=== PATIENT | female | born 1935 | race Caucasian/White ===

== ENCOUNTER 2016-11-18 12:03 | Inpatient (IN) ==
[2016-11-18] MEDS ORDERED: Aspirin 81 MG TAB.CHEW PO ONE (12:06)
--- NOTE | 2016-11-18 12:12 | Emergency Department Note ---
Disposition Clinical Impression: Chest pain Qualifiers: Chest pain type: unspecified Qualified Code(s): R07.9 - Chest pain, unspecified Disposition: Admitted As Inpatient Condition: Fair Referrals: Frederic Campa MD [Primary Care Provider] - Forms: ED Satisfaction Letter Time of Disposition: 14:00 Chest Pain HPI - General Chief Complaint: ED Chest Pain Stated Complaint: chest pain Time Seen by Provider: 11/18/16 12:06 Source: patient, EMS Mode of arrival: EMS Limitations: no limitations Vital Signs Reviewed: Yes Nursing Notes Reviewed: Yes - History of Present Illness HPI Narrative: 81-year-old female comes in complaining of chest pain that started just prior to arrival. She describes it as left-sided with some radiation into her left shoulder. She had some numbness and tingling in her left arm. She denies a history of previous [place] or stents. She states she does have some coronary artery disease. Review of recent records show no recent stress test or cardiac catheter. Pt complaint: chest pain Onset (ago): Just [employer] Duration: constant Onset: during rest Pain Location: substernal, left chest Severity: mild, moderate Quality: tightness, aching Pain Radiation: LUE Improves with: nothing Worsens with: nothing Associated symptoms: Denies: nausea, vomiting, diaphoresis Treatments prior to arrival chest pain: none - Related Data Home Medications Medication Instructions Recorded Confirmed CarBAMazepine [Carbamazepine ER] 200 mg PO BID 09/03/15 11/18/16 Cholecalciferol (Vitamin D3) 1,000 unit PO DAILY 09/03/15 11/18/16 [Vitamin D3] Ezetimibe [Zetia] 10 mg PO DAILY 09/03/15 11/18/16 Indapamide [Lozol] 2.5 mg PO DAILY 09/03/15 11/18/16 Losartan Potassium [Cozaar] 50 mg PO DAILY 09/03/15 11/18/16 Raloxifene [Evista] 60 mg PO DAILY 09/03/15 11/18/16 CarBAMazepine [Carbamazepine ER] 100 mg PO 1200 03/17/16 11/18/16 Pantoprazole Sodium [Protonix] 40 mg PO BID 03/17/16 11/18/16 Potassium Chloride 10 meq PO DAILY 03/17/16 11/18/16 Cyanocobalamin (B-12) [Vitamin B12] 1,000 mcg IJ QMONTH 06/24/16 11/18/16 Insulin Glargine,Hum.rec.anlog 10 unit SQ DAILY 06/24/16 11/18/16 [Wilfredo Galvanostar] Allergy Injection 1 each SQ QMONTH 11/18/16 Aspirin 81 mg PO DAILY 11/18/16 11/18/16 Allergies Allergy/AdvReac Type Severity Reaction Status Date / Time acetaminophen [From Vicodin] Allergy Rash Verified 11/18/16 14:14 cephalexin Allergy Rash Verified 11/18/16 14:14 codeine Allergy Rash Verified 11/18/16 14:14 hydrocodone [From Vicodin] Allergy Rash Verified 11/18/16 14:14 Penicillins [PCN] Allergy Rash Verified 11/18/16 14:14 Sulfa (Sulfonamide Allergy Rash Verified 11/18/16 14:14 Antibiotics) All systems ED: reviewed and negative except as stated. Constitutional: Denies: fever, chills, weakness, weight change Eyes: Denies: eye pain, eye discharge, vision change ENT ED: Denies: ear pain, throat pain, dental pain, hearing loss, epistaxis, congestion, dysphagia Cardiovascular: Reports: chest pain. Denies: palpitations, dyspnea on exertion , edema, syncope Respiratory: Denies: cough, dyspnea, wheezes, hemoptysis, stridor Gastrointestinal: Denies: abdominal pain, nausea, vomiting, diarrhea, constipation, hematemesis, melena, hematochezia Genitourinary: Denies: dysuria, frequency, hematuria, discharge Musculoskeletal: Denies: back pain, neck pain, arthralgia, myalgia Integumentary: Denies: rash, abrasion, lesions Neurological: Denies: headache, weakness, numbness, paresthesias, confusion, abnormal gait, vertigo Psychiatric: Denies: anxiety, depression, suicidal thoughts, homicidal thoughts , auditory hallucinations, visual hallucinations Endocrine: Denies: fatigue Hematological/Lymphatic: Denies: easy bleeding, easy bruising Allergic/Immunologic: Denies: facial swelling, urticaria Chest Pain PMH - Past Medical History Medical history: Reports: dementia, diabetes, hyperlipidemia, hypertension, seizures, syncope, TIA, other Surgical history: Reports: cholecystectomy, knee replacement, ELENI/BSO, other Psychiatric history: Reports: no psych history - Social History Smoking Status: Never smoker Alcohol use: Reports: none Drug use: Reports: none Physical Exam - General Limitations: no limitations General appearance: alert, in no apparent distress - Head Head exam: atraumatic, normocephalic, normal inspection - Eye Eye exam: Present: normal appearance, PERRL, EOMI - ENT ENT exam: normal exam, normal oropharynx, mucous membranes moist - Neck Neck exam: Present: normal inspection, full ROM, trachea midline - Chest Chest inspection: Present: normal inspection, symmetric chest wall rise - Respiratory Respiratory exam: Present: normal lung sounds bilaterally - Cardiovascular Cardiovascular exam: Present: regular rate, normal rhythm, normal heart sounds - Abdominal Exam Abdominal exam: Present: soft, Non-Tender. Absent: tenderness, distention, guarding, rebound, rigidity - Extremities Exam Extremities exam: Present: normal inspection, full ROM. Absent: tenderness, pedal edema - Expanded Lower Extremity Exam Neurovascular/Tendon exam: Absent: motor deficit, sensory deficit, tendon deficit Gait: not tested/not observed - Back Exam Back exam: Present: normal inspection, full ROM. Absent: tenderness - Neurological Exam Neurological exam: Present: alert, oriented X3 - Psychiatric Psychiatric exam: Present: normal affect, normal mood - Skin Skin exam: Present: warm, dry, intact, normal color Course - Reevaluation(s) Reevaluation #1: 81-year-old with chest pain describes as tightness heaviness in her chest. Patient's workup in the emergency department is negative she has had no recent cardiac workup. Time: 14:00 - Consultations Consultation #1: Discussed with , admit. Time: 14:22 Vital Signs Temperature 98.2 F 11/18/16 12:05 Pulse Rate 60 11/18/16 12:05 Respiratory Rate 18 11/18/16 12:05 Blood Pressure 210/93 11/18/16 12:05 O2 Sat by Pulse Oximetry 99 11/18/16 12:05 Temperature 98.2 F 11/18/16 12:05 Pulse Rate 61 11/18/16 13:48 Respiratory Rate 16 11/18/16 13:48 Blood Pressure 186/71 11/18/16 13:48 O2 Sat by Pulse Oximetry 99 11/18/16 13:48 Oxygen Delivery Oxygen Delivery Room Air Chest Pain - Lab Data Lab results reviewed: Yes I reviewed the patient's lab results. Result diagrams: 11/18/16 12:15 11/18/16 12:15 Lab Results 11/18/16 11/18/16 11/18/16 Range/Units 12:15 12:15 12:15 WBC 6.7 (4.3-11.1) K/mcL RBC 4.11 (3.82-4.97) M/mcL Hgb 12.9 (11.5-15.4) g/dL Hct 35.6 (35.3-44.9) % MCV 86.6 (83.0-100.0) fL MCH 31.4 (28.0-33.3) pg MCHC 36.2 H (31.6-35.5) g/dL RDW 11.9 (11.5-14.5) % Plt Count 188 (140-400) K/mcL MPV 8.5 L (9.4-12.4) fL Immature Gran % 0.9 (0-4) % Seg Neutrophils % 71.5 % Lymphocytes % 16.7 % Monocytes % 9.7 % Eosinophils % 0.6 % Basophils % 0.6 % Neutrophils # 4.8 (1.6-8.9) K/mcL Lymphocytes # 1.1 (0.6-4.6) K/mcL Monocytes # 0.7 (0.0-1.3) K/mcL Eosinophils # 0.0 (0.0-0.6) K/mcL Basophils # 0.0 (0.0-0.2) K/mcL PT 10.7 (9.4-12.1) Seconds INR 1.0 APTT 28.4 (26.0-36.0) Seconds Sodium 121 L (136-145) mEq/L Potassium 4.0 (3.5-4.5) mEq/L Chloride 81 L (98-109) mEq/L Carbon Dioxide 30 H (19-29) mEq/L BUN 17 (7-20) mg/dL Creatinine 1.01 (0.57-1.11) mg/dL Est GFR ( Amer) > 60 (> 60) Est GFR (Non-Af Amer) 53 L (> 60) BUN/Creatinine Ratio 17 (6-26) Glucose 184 H (70-99) mg/dL Calculated Osmolality 258 L (280-300) Calcium 9.1 (8.6-10.8) mg/dL Troponin I (0-0.03) ng/mL 11/18/16 Range/Units 12:15 WBC (4.3-11.1) K/mcL RBC (3.82-4.97) M/mcL Hgb (11.5-15.4) g/dL Hct (35.3-44.9) % MCV (83.0-100.0) fL MCH (28.0-33.3) pg MCHC (31.6-35.5) g/dL RDW (11.5-14.5) % Plt Count (140-400) K/mcL MPV (9.4-12.4) fL Immature Gran % (0-4) % Seg Neutrophils % % Lymphocytes % % Monocytes % % Eosinophils % % Basophils % % Neutrophils # (1.6-8.9) K/mcL Lymphocytes # (0.6-4.6) K/mcL Monocytes # (0.0-1.3) K/mcL Eosinophils # (0.0-0.6) K/mcL Basophils # (0.0-0.2) K/mcL PT (9.4-12.1) Seconds INR APTT (26.0-36.0) Seconds Sodium (136-145) mEq/L Potassium (3.5-4.5) mEq/L Chloride (98-109) mEq/L Carbon Dioxide (19-29) mEq/L BUN (7-20) mg/dL Creatinine (0.57-1.11) mg/dL Est GFR ( Amer) (> 60) Est GFR (Non-Af Amer) (> 60) BUN/Creatinine Ratio (6-26) Glucose (70-99) mg/dL Calculated Osmolality (280-300) Calcium (8.6-10.8) mg/dL Troponin I 0.00 (0-0.03) ng/mL - Radiology Data Radiology results reviewed: Yes I reviewed the patient's radiology results. Chest X-Ray 11/18/16 12:06 IMPRESSION: 1. Small left pleural effusion versus pleural thickening. Otherwise unremarkable chest radiograph. D/ / Miles Ying MD / Miles Ying MD Interpreting Provider: Miles Ying MD - EKG Data EKG attestation: Yes I reviewed and interpreted this EKG. EKG shows normal: sinus rhythm Rate: normal Rhythm: NSR Interpretation: no acute changes Heart Score - Score History: Moderately Suspicious EKG: Non Specific repolarisation Disturbance Age: Greater than 65 Risk Factors: Equal/Greater than 3 risk factor or history of atherosclerotic disease Troponin: Less than normal limit HEART Score Total: 6
[2016-11-18 12:30] LABS: Basophils % 0.6 %; Eosinophils % 0.6 %; Hematocrit 35.6 % (35.3-44.9); Hemoglobin 12.9 g/dL (11.5-15.4); Immature Granulocytes % 0.9 % (0-4); Lymphocytes # 1.1 K/mcL (0.6-4.6); Lymphocytes % 16.7 %; Mean Corpuscular HGB Conc 36.2 g/dL (31.6-35.5); Mean Corpuscular Hemoglobin 31.4 pg (28.0-33.3); Mean Corpuscular Volume 86.6 fL (83.0-100.0); Mean Platelet Volume 8.5 fL (9.4-12.4); Monocytes # 0.7 K/mcL (0.0-1.3); Monocytes % 9.7 %; Neutrophils # 4.8 K/mcL (1.6-8.9); Platelet Count 188 K/mcL (140-400); Red Blood Count 4.11 M/mcL (3.82-4.97); Red Cell Distribution Width 11.9 % (11.5-14.5); Segmented Neutrophils % 71.5 %
[2016-11-18 12:38] LABS: Prothrombin Time 10.7 Seconds (9.4-12.1)
[2016-11-18 12:40] LABS: Activated Partial Thrombo Time 28.4 Seconds (26.0-36.0)
[2016-11-18 12:50] LABS: BUN/Creatinine Ratio 17 (6-26); Blood Urea Nitrogen 17 mg/dL (7-20); Calcium 9.1 mg/dL (8.6-10.8); Carbon Dioxide 30 mEq/L (19-29); Chloride 81 mEq/L (98-109); Glucose 184 mg/dL (70-99); Osmolality,Calculated 258 (280-300); Sodium 121 mEq/L (136-145); eGFR For African Americans > 60 (> 60); eGFR For Non-African Americans 53 (> 60)
--- NOTE | 2016-11-18 16:48 | Internal Med History&Physical ---
Date of Encounter: 11/18/16 Time of Encounter: 16:45 Assessment and Plan (1) Chest pain Current visit: Yes Status: Acute currently chest pain free, s/p one dose of aspirin. h/o stent placed, plavix was held as she was bruising too much. she is only taking baby aspirin first trop is negative, no EKG changes will trend trop, monitor for chest pain, continuous tele monitoring. may be 2/2 HTN urgency, will not order stress testing at this time. Qualifiers: Chest pain type: unspecified Qualified Code(s): R07.9 - Chest pain, unspecified (2) Diabetes Current visit: No Status: Chronic Qualifiers: Diabetes mellitus type: type 2 Diabetes mellitus complication status: without complication Qualified Code(s): E11.9 - Type 2 diabetes mellitus without complications (3) HTN (hypertension) Current visit: No Status: Chronic BP was elevated when she came SBP>210. currently at 140/80s. will continue home meds, watch overnight Qualifiers: Hypertension type: essential hypertension Qualified Code(s): I10 - Essential (primary) hypertension (4) Dementia Current visit: No Status: Acute was able to answer all the questions appropriately. alert and awake. Qualifiers: Dementia type: unspecified type Dementia behavioral disturbance: without behavioral disturbance Qualified Code(s): F03.90 - Unspecified dementia without behavioral disturbance (5) CAD (coronary artery disease) Current visit: No Status: Chronic has had stents in the past, as per the daughter she had no CA but had stents placed at [facility]. she has no h/o LHC done. on asa and statin, will continue Qualifiers: Coronary Disease-Associated Artery/Lesion type: [place] artery [place] vs. transplanted heart: [place] heart Associated angina: without angina Qualified Code(s): I25.10 - Atherosclerotic heart disease of [place] coronary artery without angina pectoris (6) Carotid stenosis, left Current visit: No Status: Chronic she was told that the stenosis is not severe for the surgical procedure. Internal Medicine - H&P: HPI Chief complaint: chest pain Admitted From: Home Plans for Post Hospital Care: Home History of present illness: Ms. Galaviz is a 81 year old female with history of HTN, TIA x 2, Carotid artery stenosis, type 2 diabetes and dementia, who presented with a complaint of left- sided chest pain that started this morning. Patient has history of cardiac stent placed many years ago at [place], currently only on baby aspirin. She reports that this is the first time she has this kind of chest pain that made her come to the hospital. As per the daughter, she had a dream this weekend and she saw that she , since then she has been very stressful and has not slept well. At the time of presentation, her blood pressure was elevated at systolic more than 200, she was given aspirin at ED. She reports she was mildly short of breath, however denies any nausea, vomiting , fever, cough, palpitation or diaphoresis. She reports that she takes her medications regularly and has not missed any doses. She denies exertional dyspnea or exertional chest pain before this episode. At the time of my assessment, she reports that the chest pain has almost resolved. Past Med Surg Social Fam HX - Past Medical History Medical history: dementia, diabetes, hyperlipidemia, hypertension, seizures, syncope, TIA, other Psychiatric history: no psych history - Past Surgical History Surgical History: cholecystectomy, knee replacement, ELENI/BSO, other - Social History Smoking Status: Never smoker Smokeless Tobacco Status: No Alcohol use: none Drug use: none - Family History Mother Living Status: Father Living Status: Hx Family Endocrine Disorder: Yes (diabetes) Sister Hx Family Cancer: Yes (breast cancer) Internal Medicine - H&P: Meds CarBAMazepine [Carbamazepine ER] 200 mg PO BID 09/03/15 [History] Cholecalciferol (Vitamin D3) [Vitamin D3] 1,000 unit PO DAILY 09/03/15 [History] Ezetimibe [Zetia] 10 mg PO DAILY 09/03/15 [History] Indapamide [Lozol] 2.5 mg PO DAILY 09/03/15 [History] Losartan Potassium [Cozaar] 50 mg PO DAILY 09/03/15 [History] Raloxifene [Evista] 60 mg PO DAILY 09/03/15 [History] CarBAMazepine [Carbamazepine ER] 100 mg PO 1200 03/17/16 [History] Pantoprazole Sodium [Protonix] 40 mg PO BID 03/17/16 [History] Potassium Chloride 10 meq PO DAILY 03/17/16 [History] Cyanocobalamin (B-12) [Vitamin B12] 1,000 mcg IJ QMONTH 06/24/16 [History] Insulin Glargine,Hum.rec.anlog [Wilfredo Feliz] 10 unit SQ DAILY 06/24/16 [ History] Allergy Injection 1 each SQ QMONTH 11/18/16 [History] Aspirin 81 mg PO DAILY 11/18/16 [History] Allergies acetaminophen [From Vicodin] Allergy (Verified 11/18/16 14:14) Rash cephalexin Allergy (Verified 11/18/16 14:14) Rash codeine Allergy (Verified 11/18/16 14:14) Rash hydrocodone [From Vicodin] Allergy (Verified 11/18/16 14:14) Rash Penicillins [PCN] Allergy (Verified 11/18/16 14:14) Rash Sulfa (Sulfonamide Antibiotics) Allergy (Verified 11/18/16 14:14) Rash All Systems PM: A 10-system review of systems was performed and is negative for pertinent findings except as documented above in the HPI. - Constitutional Constitutional: as per HPI - EENT Eyes: as per HPI Nose, mouth and throat: no dysphagia, no nasal discharge, no neck pain, no sore throat - Cardiovascular Cardiovascular ROS IM: chest pain, dyspnea - Respiratory Respiratory: no cough, no dyspnea, no wheezing, no excessive phlegm production - Gastrointestinal Gastrointestinal: no abdominal pain, no diarrhea, no hematemesis, no hematochezia, no melena, no nausea, no vomiting - Genitourinary Genitourinary: no change in urinary stream, no dysuria, no flank pain, no hematuria - Musculoskeletal Musculoskeletal ROS IM: no numbness, no tingling - Constitutional Vitals: Temp Pulse Resp BP Pulse Ox 98.0 F 61 17 141/67 100 11/18/16 15:28 11/18/16 15:28 11/18/16 15:28 11/18/16 15:28 11/18/16 15:28 General appearance: Present: A&O X 3, no acute distress Exam: neck- supple chest- b/l clear, no added sounds CVS- s1 and s2, no m/r/g abd-soft, non tender, bs are present ext - no edema neuro- no focal deficits. Internal Med - H&P Results - Labs CBC & Chem 7: 11/18/16 12:15 11/18/16 12:15
[2016-11-18] MEDS ORDERED: Naloxone 0.4 MG/ML INJ IVP PRN (17:09)
[2016-11-18] MEDS ORDERED: *HR* Dextrose 50 % in Water (Syg) 50 ML SYRINGE IVP PRN (17:13)
[2016-11-18] MEDS ORDERED: Dextrose Gel 15 GM PO PRN ×2 (17:13)
[2016-11-18] MEDS ORDERED: D5% in Water 1,000 ML IVC PRN (17:13)
--- NOTE | 2016-11-18 19:24 | Event Note ---
Date of Encounter: 11/18/16 Time of Encounter: 19:23 Called by RN for sodium level of 121. I stopped her Indapamide, ordered frequent Chem-7 to monitor electrolytes, and placed her in seizure precautions. Suspect low sodium due to thiazide diuretic.
[2016-11-18 20:23] LABS: BUN/Creatinine Ratio 19 (6-26); Blood Urea Nitrogen 16 mg/dL (7-20); Calcium 8.3 mg/dL (8.6-10.8); Carbon Dioxide 29 mEq/L (19-29); Chloride 82 mEq/L (98-109); Glucose 170 mg/dL (70-99); Osmolality,Calculated 255 (280-300); Potassium 3.6 mEq/L (3.5-4.5); eGFR For African Americans > 60 (> 60); eGFR For Non-African Americans > 60 (> 60)
[2016-11-18 20:34] LABS: Sodium 120 mEq/L (136-145)
[2016-11-18] MEDS: Insulin LISPRO 300 UNITS/3 ML VIAL SQ SCH (21:47)
--- NOTE | 2016-11-19 00:19 | Event Note ---
Date of Encounter: 11/19/16 Time of Encounter: 00:15 Called by RN with repeat sodium level 118. I saw and examined patient. She is alert and oriented, but she has dementia and has poor recollection of her recent medical history. She admits to history of seizures and prior brain surgery many years ago. She confirms she is on Indapamide for BP control, but she does not know how long she's been on it. She denies any excessive polydipsia. She denies prior history of hyponatremia; however her memory recall is suboptimal. On exam, she has no focal deficits. She appears euvolemic. I will order a head CT, transfer her to , monitor chem-7 closely, and consult nephrology for guidance.
[2016-11-19 03:20] LABS: BUN/Creatinine Ratio 20 (6-26); Blood Urea Nitrogen 16 mg/dL (7-20); Calcium 7.9 mg/dL (8.6-10.8); Carbon Dioxide 24 mEq/L (19-29); Chloride 85 mEq/L (98-109); Glucose 149 mg/dL (70-99); Osmolality,Calculated 248 (280-300); Potassium 4.1 mEq/L (3.5-4.5); eGFR For African Americans > 60 (> 60); eGFR For Non-African Americans > 60 (> 60)
[2016-11-19 03:23] LABS: Sodium 117 mEq/L (136-145)
[2016-11-19] MEDS: *HR* Enoxaparin 30 MG/0.3 ML SYRINGE SQ SCH (06:21)
[2016-11-19 06:38] LABS: Basophils % 0.4 %; Eosinophils % 0.5 %; Hematocrit 34.5 % (35.3-44.9); Hemoglobin 12.4 g/dL (11.5-15.4); Immature Granulocytes % 0.5 % (0-4); Lymphocytes # 1.2 K/mcL (0.6-4.6); Lymphocytes % 14.5 %; Mean Corpuscular HGB Conc 35.9 g/dL (31.6-35.5); Mean Corpuscular Hemoglobin 31.5 pg (28.0-33.3); Mean Corpuscular Volume 87.6 fL (83.0-100.0); Mean Platelet Volume 8.6 fL (9.4-12.4); Monocytes # 0.8 K/mcL (0.0-1.3); Monocytes % 10.2 %; Neutrophils # 6.1 K/mcL (1.6-8.9); Platelet Count 183 K/mcL (140-400); Red Blood Count 3.94 M/mcL (3.82-4.97); Red Cell Distribution Width 11.7 % (11.5-14.5); Segmented Neutrophils % 73.9 %
[2016-11-19 06:50] LABS: BUN/Creatinine Ratio 20 (6-26); Blood Urea Nitrogen 16 mg/dL (7-20); Calcium 8.4 mg/dL (8.6-10.8); Carbon Dioxide 21 mEq/L (19-29); Chloride 85 mEq/L (98-109); Glucose 146 mg/dL (70-99); Osmolality,Calculated 254 (280-300); Potassium 3.6 mEq/L (3.5-4.5); eGFR For African Americans > 60 (> 60); eGFR For Non-African Americans > 60 (> 60)
[2016-11-19 06:55] LABS: Sodium 120 mEq/L (136-145)
[2016-11-19] MEDS: (Ezetimibe [Zetia] 10 MG) PO SCH (08:29)
[2016-11-19] MEDS: Aspirin 81 MG TAB.CHEW PO SCH (08:29)
[2016-11-19 08:30] LABS: BUN/Creatinine Ratio 19 (6-26); Blood Urea Nitrogen 15 mg/dL (7-20); Calcium 8.4 mg/dL (8.6-10.8); Carbon Dioxide 24 mEq/L (19-29); Chloride 83 mEq/L (98-109); Glucose 172 mg/dL (70-99); Osmolality,Calculated 255 (280-300); Potassium 3.5 mEq/L (3.5-4.5); eGFR For African Americans > 60 (> 60); eGFR For Non-African Americans > 60 (> 60)
--- NOTE | 2016-11-19 08:32 | Nephrology Consult Note ---
<Scott Cameron - Last Filed: 11/19/16 12:06> Date of Encounter: 11/19/16 Time of Encounter: 08:28 Assessment and Plan (1) Hyponatremia Current Visit: Yes Status: Acute Acute hyponatremia, euvolemic. Patient was admitted for Chest pain and subsequently determined to have Sodium on admission of 121. Sodium on repeat labs down to 117. Indapamide held by overnight Hospitalist. Prior history of borderline/low normal sodium. CXR revealed a small left pleural effusion vs pleural thickening. CT Head revealed no acute process, stable bifrontal enecphalomalacia with craniotomy. Patient reports some lightheadedness this morning. Exam reveals a pleasant 81 year old female, alert and oriented to person place and time, not situation with no additional exam findings. Patient appears euvolemic. Sodium 120, calculated osm 254. TSH returned normal. Urine sodium, Urine osm, Serum osm, random cortisol, and serum uric acid ordered. Monitor I&O. Salt tablets 1gm bid. Continue monitoring labs. (2) HTN (hypertension) Current Visit: Yes Status: Chronic Patient with a known history of hypertension on home indapamide and losartan was determined to have elevated bp of 210/93 on arrival to ED. Bp returned to 141/67 upon admission without medications/intervention. Overnight patient's bp elevated to 154-168/49-71 with pulse of 63-65 bpm. Patient was given 10mg hydralazine. Indapamide held due to possible contributing factor of hyponatremia. Bp this morning at 117/47, rate 85 bpm. Patient reports mild lightheadedness this morning. Continue with Losartan and Hydralazine prn. Continue monitoring bp. Goal bp < 150/90. Caution advised to avoid hypotension. Contineu per plan of hospitalist. Qualifiers: Hypertension type: essential hypertension Qualified Code(s): I10 - Essential (primary) hypertension (3) Chest pain Current Visit: Yes Status: Acute Patient was admitted yesterday from the ED with complaint of Chest pain. Patient denies chest pain this morning or overnight. Continue per plan of hospitalist. Qualifiers: Chest pain type: unspecified Qualified Code(s): R07.9 - Chest pain, unspecified (4) Dementia Current Visit: Yes Status: Chronic Patient has a known history of dementia. A&O x3 person, place, and time this morning. Unaware what brought her to the Hospital No lethargy/somnolence noted. No family members at bedside to determine if at baseline, but appears no acute process. CT Head revealed no acute process, stable bifrontal encephalomalacia with craniotomy. Qualifiers: Dementia type: unspecified type Dementia behavioral disturbance: without behavioral disturbance Qualified Code(s): F03.90 - Unspecified dementia without behavioral disturbance (5) Type 2 diabetes mellitus Current Visit: Yes Status: Chronic Patient with known history of type II diabetes on insulin. Glucose 146. Continue monitoring labs Continue per plan of hospitalist. Qualifiers: Diabetes mellitus complication status: without complication Diabetes mellitus fdc insulin use: with fdc use Qualified Code(s): E11.9 - Type 2 diabetes mellitus without complications; Z79.4 - intermediate (current) use of insulin (6) Seizure disorder Current Visit: Yes Status: Chronic Known history of seizure disorder unspecified. No reported history of seizure activity prompting this visit or overnight seizure-like activity. Continue home meds for chronic disease management. Continue per plan of Hospitalist. History of Present Illness - Reason for Consult Consult date: 11/19/16 hyponatremia Requesting physician: Edis Hunter - Chief Complaint Chest pain. Hypertension, hyponatremia - History of Present Illness Ms. Galaviz is an 81 year old female with history of hypertension (on indapamide and losartan), type II diabetes on insulin, CAD s/p stent on aspirin, carotid stenosis, hyperlipidemia, unspecified seizure disorder, and dementia who presented to the ED yesterday afternoon with complaint of left sided chest pain since early that morning. Review of notes indicates patient's daughter had mentioned the patient had a dream of over the weekend and has since been stressed and not sleeping well. Upon arrival EKG revealed normal sinus rhythm without acute changes, CXR revealed a small left pleural effusion vs pleural thickening, troponins have been negative x 3. Review of notes indicates patient has been A&O x3. Bp on arrival was 210/93 with rate of 60. Labs revealed sodium of 121, potassium of 4.0, chloride 81, bicarb 30, BUN 17, Cr 1.01, and glucose 184. Hb 12.9, Hct 25.6, platelets 188. Patient was admitted for chest pain rule out. Another set of labs indicated sodium down to 117. Review of event note from overnight Hospitalist indicates patient was alert and oriented with baseline dementia and difficulty remembering things and indapamide was discontinued. Bp upon admission was controlled at 140/80s without medications. Overnight bp was between 154-168/49-71 with rate between 63-65 bpm. Patient was administered hydralazine with bp returning to 117/47 with rate 85 this morning. Labs this morning reveal sodium 120, potassium 2.6, chlordie 85, bicarb 21, BUN 16, Cr 0.80, and glucose 146. Nephrology was consulted for evaluation and management of Hyponatremia and uncontrolled hypertension. This morning the patient is A&O x3, but unaware of what brought her to the hospital. Patient reports some shortness of breath and some lightheadedness. Patient denies fevers, chills, sweats, headaches, changes in vision or hearing, increased confusion, increased problems with memory, nausea, vomiting, increased /decreased appetite, dysphagia, increased fluid intake, chest pain or pressure, palpitations, abdominal pain, changes in bowels or bladder, dysuria, weakness, or loss of sensation. Upon further questioning, patient is fully aware that she had a bad dream over the weekend and reports that since she has not been sleeping throughout the night. Past Med Surg Social Fam HX - Past Medical History Medical history: coronary artery disease, dementia, diabetes, hyperlipidemia, hypertension, seizures, syncope, TIA, other Psychiatric history: no psych history - Past Surgical History Surgical History: cholecystectomy, knee replacement, ELENI/BSO, other - Social History Smoking Status: Never smoker Smokeless Tobacco Status: No Alcohol use: none Drug use: none Occupational status: retired Activity Level: Independent ambulation, Other (with assistance) Recent Out of Country Travel Within the Last 8 Weeks: No Exposure or Possible Exposure to Illness During Travel: No - Family History Mother Living Status: Father Living Status: Hx Family Endocrine Disorder: Yes (diabetes) Sister Hx Family Cancer: Yes (breast cancer) Medications and Allergies CarBAMazepine [Carbamazepine ER] 200 mg PO BID 09/03/15 [History] Cholecalciferol (Vitamin D3) [Vitamin D3] 1,000 unit PO DAILY 09/03/15 [History] Ezetimibe [Zetia] 10 mg PO DAILY 09/03/15 [History] Indapamide [Lozol] 2.5 mg PO DAILY 09/03/15 [History] Losartan Potassium [Cozaar] 50 mg PO DAILY 09/03/15 [History] Raloxifene [Evista] 60 mg PO DAILY 09/03/15 [History] CarBAMazepine [Carbamazepine ER] 100 mg PO 1200 03/17/16 [History] Pantoprazole Sodium [Protonix] 40 mg PO BID 03/17/16 [History] Potassium Chloride 10 meq PO DAILY 03/17/16 [History] Cyanocobalamin (B-12) [Vitamin B12] 1,000 mcg IJ QMONTH 06/24/16 [History] Insulin Glargine,Hum.rec.anlog [Toujeo Solostar] 10 unit SQ DAILY 06/24/16 [ History] Allergy Injection 1 each SQ QMONTH 11/18/16 [History] Aspirin 81 mg PO DAILY 11/18/16 [History] Allergies acetaminophen [From Vicodin] Allergy (Verified 11/18/16 14:14) Rash cephalexin Allergy (Verified 11/18/16 14:14) Rash codeine Allergy (Verified 11/18/16 14:14) Rash hydrocodone [From Vicodin] Allergy (Verified 11/18/16 14:14) Rash Penicillins [PCN] Allergy (Verified 11/18/16 14:14) Rash Sulfa (Sulfonamide Antibiotics) Allergy (Verified 11/18/16 14:14) Rash Review of Systems Constitutional: no chills, no fatigue, no fever(s), no headache(s), no increased appetite, no malaise, no night sweats, no weakness, no weight gain, no weight loss Nose, mouth and throat: as per HPI, no dry mouth, no dysphagia, no sore throat Cardiovascular: as per HPI, dyspnea, lightheadedness, no chest pain, no diaphoresis, no edema, no irregular heart rhythm, no leg edema, no palpitations , no pedal edema, no rapid heart rate, no syncope Respiratory: as per HPI, dyspnea, no cough, no wheezing, no pain on inspiration , no chest congestion, no excessive phlegm production Gastrointestinal: as per HPI, no abdominal pain, no change in bowel habits, no change in stool character, no constipation, no diarrhea, no heartburn, no nausea , no odynophagia, no vomiting Genitourinary Female: as per HPI, no dysuria, no flank pain, no hematuria Musculoskeletal: as per HPI, limited range of motion (appropriate for age), no abnormal gait, no muscle weakness, no numbness, no stiffness, no tingling Integumentary: as per HPI, no erythema, no pruritus, no rash, no skin pain, no swelling, no unusual bruising Neurological: as per HPI, memory loss, no abnormal gait, no abnormal movements, no behavioral changes, no confusion, no frequent falls, no headache(s), no loss of vision, no numbness, no syncope, no tingling, no weakness Psychiatric: as per HPI, no depression Exam - Vital Signs Vital signs: Initial Vital Signs Temp Pulse Resp BP Pulse Ox 98.2 F 60 18 210/93 99 11/18/16 12:05 11/18/16 12:05 11/18/16 12:05 11/18/16 12:05 11/18/16 12:05 Vital Signs - Last 8 Hours Temp Pulse Resp BP Pulse Ox 11/19/16 07:34 98.1 F 85 14 117/47 97 11/19/16 03:13 97.7 F 63 18 168/71 97 11/19/16 01:59 97.4 F L 65 16 154/49 98 Intake and Output 11/18/16 11/19/16 11/19/16 23:59 07:59 15:59 Output Total 250 / 250 Balance -250 / -250 Output: Urine 250 / 250 Other: Weight 60.1 kg Blood Glucose* 215 187 Patient Weight 11/19/16 23:59 Weight 60.1 kg - General Appearance General appearance: well-developed, appears started age, cachectic Exam: no acute distress EENT: PERRL, mucous membranes moist, hearing intact, vision intact Neck: no JVD, no thyromegaly, no carotid bruit, supple Respiratory: no scoliosis, clear Cardiology: no murmurs, no edema, regular rate, regular rhythm, normal S1, normal S2 Gastrointestinal: normoactive bowel sounds, no tenderness, no guarding, no organomegaly, no masses Integumentary: no rash, warm and dry, ecchymotic (lesions on upper extremity s/ p lab draws) Neurologic: no focal deficit, alert and oriented x3, reflexes 2+ and symmetric, strength 5/5 (for age) Musculoskeletal: no deformities, no erythema, no cyanosis, no clubbing Additional Comments: no edema Psychiatric: mood/affect appropriate, cooperative Additional Comments: Pleasent, no acute distress, Alert and Oriented to person, place, and time. not to situation. Results - Lab Results 11/19/16 05:48 11/19/16 10:29 Most recent lab results Calcium 8.4 mg/dL (8.6-10.8) L 11/19/16 05:48 Consult Discharge Plan - Plan Referrals: Frederic Campa MD [Primary Care Provider] - Louise Escalante CNP [Advanced Practice Nurse] - 11/28/16 10:00 am <Breanna Lora - Last Filed: 11/19/16 17:08> Date of Encounter: 11/19/16 Exam - Vital Signs Vital signs: Initial Vital Signs Temp Pulse Resp BP Pulse Ox 98.2 F 60 18 210/93 99 11/18/16 12:05 11/18/16 12:05 11/18/16 12:05 11/18/16 12:05 11/18/16 12:05 Vital Signs - Last 8 Hours Temp Pulse Resp BP Pulse Ox 11/19/16 17:02 68 11/19/16 15:03 97.5 F L 80 16 120/59 100 11/19/16 12:35 70 11/19/16 11:05 97.7 F 91 16 123/64 Intake and Output 11/19/16 11/19/16 11/19/16 07:59 15:59 23:59 Intake Total 300 / 300 Output Total 250 / 250 450 / 450 Balance -250 / -250 -150 / -150 Intake: Oral 300 / 300 Output: Urine 250 / 250 450 / 450 Other: Meal Lunch Percent of Meal Consumed 30% Weight 60.1 kg Blood Glucose* 187 241 136 Patient Weight 11/19/16 23:59 Weight 60.1 kg Results - Lab Results 11/19/16 05:48 11/19/16 10:29 Most recent lab results Calcium 8.3 mg/dL (8.6-10.8) L 11/19/16 10:29 Urine Creatinine 49 mg/dL 11/19/16 08:20 Urine Sodium 78.0 mEq/L 11/19/16 08:20 - Attending Attestation I examined this patient and my medical decision-making was reviewed with the MEASUREMENT DEPARTMENT CHIEF CLERK/PA/Advanced Practice Nurse/Resident Physician. I agree with the documented findings, disposition and treatment plan as described except to the extent set forth below. Pt seen and examined with no complaints at baseline according to nurse who spoke with daughter given history of dementia and seizure d/o. BP normalized but with hyponatremia in the setting of diuretics and tegretol in a euvolemic patient also rule SIADH Will check urine and serum osmolality, urine sodium, cortisol level and uric acid level. start sodium tabs in the meantime at 1g bid. Also fluid restrict for now and continue serial sodium checks q4 till above 120 and q6 afterwards. Agree with stopping indapamide for now and also consider chnaging tegretol which is known for hyponatremia.
[2016-11-19 08:36] LABS: Sodium 120 mEq/L (136-145)
[2016-11-19] MEDS: Insulin LISPRO 300 UNITS/3 ML VIAL SQ SCH ×4 (08:42→21:15)
[2016-11-19 09:55] LABS: Thyroid Stimulating Hormone 1.005 mcIU/mL (0.350-4.840)
[2016-11-19 11:31] LABS: BUN/Creatinine Ratio 17 (6-26); Blood Urea Nitrogen 16 mg/dL (7-20); Calcium 8.3 mg/dL (8.6-10.8); Carbon Dioxide 25 mEq/L (19-29); Chloride 82 mEq/L (98-109); Glucose 266 mg/dL (70-99); Osmolality,Calculated 256 (280-300); Potassium 3.4 mEq/L (3.5-4.5); eGFR For African Americans > 60 (> 60); eGFR For Non-African Americans 58 (> 60)
[2016-11-19 11:36] LABS: Sodium 118 mEq/L (136-145)
[2016-11-19] MEDS ORDERED: CarBAMazepine XR (12 hr) 100 MG TAB PO SCH (12:00)
--- NOTE | 2016-11-19 16:36 | Internal Med Progress Note ---
Date of Encounter: 11/19/16 Time of Encounter: 16:34 - Assessment and plan (1) Hyponatremia Current Visit: Yes Status: Acute Assessment and plan: na noted to be 118. workup revealed normal TSH. normal cortisol patinet appears to have euvolemic hyponatremia, low serum osmolarity, urine osmolaity high---393, high urine NA ---78. may be 2/2 hyper ADH possible SIADH vs salt wasting( unclear etiology). CT head does not show any acute pathology. await renal recommendation. will do fluid restriction for now and monitor urine output. currently added on salt tabs, will repeat chem q6, monitor for seizures. (2) Chest pain Current Visit: Yes Status: Acute Assessment and plan: no chest pain now. h/o stent placed, plavix was held as she was bruising too much. she is only taking baby aspirin tropx3 is negative, no EKG changes may be 2/2 HTN urgency, BP much controlled this time. Qualifiers: Chest pain type: unspecified Qualified Code(s): R07.9 - Chest pain, unspecified (3) Diabetes Current Visit: No Status: Chronic Assessment and plan: will continue lispro sliding scale for now. Qualifiers: Diabetes mellitus type: type 2 Diabetes mellitus complication status: without complication Qualified Code(s): E11.9 - Type 2 diabetes mellitus without complications (4) HTN (hypertension) Current Visit: Yes Status: Chronic Assessment and plan: will continue current BP meds, Hydralazine prn. Qualifiers: Hypertension type: essential hypertension Qualified Code(s): I10 - Essential (primary) hypertension (5) Dementia Current Visit: Yes Status: Chronic Assessment and plan: alert and awake but appears somewhat confusedtoday as compared to yesterday. this may be 2/2 worsening hyponatremia too Qualifiers: Dementia type: unspecified type Dementia behavioral disturbance: without behavioral disturbance Qualified Code(s): F03.90 - Unspecified dementia without behavioral disturbance (6) CAD (coronary artery disease) Current Visit: No Status: Chronic Qualifiers: Coronary Disease-Associated Artery/Lesion type: [place] artery [place] vs. transplanted heart: [place] heart Associated angina: without angina Qualified Code(s): I25.10 - Atherosclerotic heart disease of [place] coronary artery without angina pectoris (7) Carotid stenosis, left Current Visit: No Status: Chronic - Time Spent With Patient 25 - 35 minutes - Subjective Interval history: carol preseneted with chest pain and HTN urgency, seen at the bedside augusto overton was told by the daughter that she has been more confused repeat Na is 118, renal has been consulted, BP much better controlled, - Constitutional Vitals: Temp Pulse Resp BP Pulse Ox 97.5 F L 80 16 120/59 100 11/19/16 15:03 11/19/16 15:03 11/19/16 15:03 11/19/16 15:03 11/19/16 15:03 General appearance: Present: A&O X 3, no acute distress Exam: neck- supple chest- b/l clear, no added sounds CVS-s1 and s2, no m/r/g abd-soft, non tender, bs are present ext0 no edema neuro- alert adn awake, no focal neuro defecits Internal Medicine: Result - Labs CBC & Chem 7: 11/19/16 05:48 11/19/16 10:29 Labs: Short CBC 11/19/16 Range/Units 05:48 WBC 8.3 (4.3-11.1) K/mcL Hgb 12.4 (11.5-15.4) g/dL Hct 34.5 L (35.3-44.9) % Plt Count 183 (140-400) K/mcL Neutrophils # 6.1 (1.6-8.9) K/mcL BMP 11/18/16 11/18/16 11/19/16 19:45 22:47 03:01 Sodium 120 L* 118 L* 117 L* Potassium 3.6 4.1 Chloride 82 L 85 L Carbon Dioxide 29 24 BUN 16 16 Creatinine 0.86 0.82 Glucose 170 H 149 H Calcium 8.3 L 7.9 L 11/19/16 11/19/16 11/19/16 05:48 08:08 10:29 Sodium 120 L* 120 L* 118 L* Potassium 3.6 3.5 3.4 L Chloride 85 L 83 L 82 L Carbon Dioxide 21 24 25 BUN 16 15 16 Creatinine 0.80 0.79 0.93 Glucose 146 H 172 H 266 H Calcium 8.4 L 8.4 L 8.3 L Cardiac Enzymes 11/18/16 11/19/16 Range/Units 18:01 00:23 Troponin I 0.01 0.01 (0-0.03) ng/mL - ABG Interpretation ABG results: PT/INR, D-dimer PT 10.7 Seconds (9.4-12.1) 11/18/16 12:15 - Impressions Impressions Head CT 11/19/16 00:13 IMPRESSION: No acute intracranial abnormality. Stable bifrontal encephalomalacia with craniotomy. D/ / Rashid Avery MD / Rashid Avery MD Interpreting Provider: Rashid Avery MD Consult Discharge Plan - Plan Referrals: Frederic Campa MD [Primary Care Provider] - Louise Escalante CNP [Advanced Practice Nurse] - 11/28/16 10:00 am
[2016-11-19 18:28] LABS: BUN/Creatinine Ratio 24 (6-26); Blood Urea Nitrogen 21 mg/dL (7-20); Carbon Dioxide 22 mEq/L (19-29); Chloride 86 mEq/L (98-109); Glucose 163 mg/dL (70-99); Osmolality,Calculated 257 (280-300); Potassium 4.3 mEq/L (3.5-4.5); eGFR For African Americans > 60 (> 60); eGFR For Non-African Americans > 60 (> 60)
[2016-11-19 18:33] LABS: Sodium 120 mEq/L (136-145)
[2016-11-19 19:14] LABS: Bilirubin,Urine Negative (Negative); Blood,Urine Negative (Negative); Clarity,Urine Clear (Clear); Color,Urine Yellow (Yellow); Glucose,Urine (UA) Normal (Normal); Ketones,Urine Negative (Negative); Leukocyte Esterase,Urine Negative (Negative); Nitrite,Urine Negative (Negative); PH,Urine 6.5 pH Units (5.0-8.0); Protein,Urine Trace mg/dL (Neg-Trace); Specific Gravity,Urine 1.016 (1.010-1.025); Urobilinogen,Urine Normal (Normal)
[2016-11-19 19:19] LABS: Bacteria,Urine None Seen per hpf (None-Few); Hyaline Casts,Urine None Seen per lpf (None-Few); RBC,Urine 0-3 per hpf (0-3); Squamous Epithelial Cell,Urine Moderate per lpf (None-Few); WBC,Urine 0-3 per hpf (0-3)
[2016-11-19 22:32] LABS: BUN/Creatinine Ratio 22 (6-26); Blood Urea Nitrogen 21 mg/dL (7-20); Carbon Dioxide 26 mEq/L (19-29); Chloride 84 mEq/L (98-109); Glucose 199 mg/dL (70-99); Osmolality,Calculated 261 (280-300); Potassium 3.5 mEq/L (3.5-4.5); Sodium 121 mEq/L (136-145); eGFR For African Americans > 60 (> 60); eGFR For Non-African Americans 57 (> 60)
[2016-11-20 05:34] LABS: BUN/Creatinine Ratio 24 (6-26); Blood Urea Nitrogen 21 mg/dL (7-20); Calcium 8.1 mg/dL (8.6-10.8); Carbon Dioxide 22 mEq/L (19-29); Chloride 86 mEq/L (98-109); Glucose 136 mg/dL (70-99); Osmolality,Calculated 255 (280-300); Potassium 3.6 mEq/L (3.5-4.5); eGFR For African Americans > 60 (> 60); eGFR For Non-African Americans > 60 (> 60)
[2016-11-20 05:48] LABS: Sodium 120 mEq/L (136-145)
[2016-11-20] MEDS: *HR* Enoxaparin 30 MG/0.3 ML SYRINGE SQ SCH (06:27)
[2016-11-20] MEDS: Aspirin 81 MG TAB.CHEW PO SCH (07:47)
[2016-11-20] MEDS: Insulin LISPRO 300 UNITS/3 ML VIAL SQ SCH ×4 (07:47→22:27)
[2016-11-20 08:56] LABS: BUN/Creatinine Ratio 22 (6-26); Blood Urea Nitrogen 19 mg/dL (7-20); Calcium 8.1 mg/dL (8.6-10.8); Carbon Dioxide 23 mEq/L (19-29); Chloride 86 mEq/L (98-109); Glucose 184 mg/dL (70-99); Osmolality,Calculated 257 (280-300); Potassium 3.1 mEq/L (3.5-4.5); eGFR For African Americans > 60 (> 60); eGFR For Non-African Americans > 60 (> 60)
[2016-11-20 09:01] LABS: Sodium 120 mEq/L (136-145)
--- NOTE | 2016-11-20 09:21 | Nephrology Progress Note ---
Date of Encounter: 11/20/16 Time of Encounter: 09:21 - Assessment and Plan (1) Hyponatremia Current Visit: Yes Status: Acute Hyponatremia, euvolemic. Likely SIADH in addition to side effect of tegretol and indapamide. Patient is A&O x3, appears at baseline, mildly more confused than yesterday on exam. Sodium 120. Serum osm 259, Urine osm 393, Urine Cr 49, Urine sodium 78, uric acid 2.3, random cortisol 18.6, TSH normal. 24hr urine sample was voided due to 2 episodes of incontinence overnight. Discontinue Tegretol Tolvaptan 15mg once Continue fluid restriction and salt tablets. Continue following sodium q4h. Monitor I&O (2) HTN (hypertension) Current Visit: Yes Status: Chronic Bp 167/67, rate 72 bpm. Continue losartan and hydralazine prn. Discontinued indapamide (thiazide) Continue monitoring bp. Goal bp <150/90 Continue per plan of hospitalist. Qualifiers: Hypertension type: essential hypertension Qualified Code(s): I10 - Essential (primary) hypertension (3) Chest pain Current Visit: Yes Status: Acute Patient was admitted yesterday from the ED with complaint of Chest pain. Patient denies chest pain this morning or overnight. Continue per plan of hospitalist. Qualifiers: Chest pain type: unspecified Qualified Code(s): R07.9 - Chest pain, unspecified (4) Dementia Current Visit: Yes Status: Chronic Patient has a known history of dementia. A&O x3 person, place, and time this morning. Unaware what brought her to the Hospital. At baseline according to family members, mildly more confused today that yesterday. No lethargy/somnolence noted. Continue per plan of Hospitalist. Qualifiers: Dementia type: unspecified type Dementia behavioral disturbance: without behavioral disturbance Qualified Code(s): F03.90 - Unspecified dementia without behavioral disturbance (5) Type 2 diabetes mellitus Current Visit: Yes Status: Chronic Patient with known history of type II diabetes on insulin. Glucose 136. Continue monitoring labs Continue per plan of hospitalist. Qualifiers: Diabetes mellitus complication status: without complication Diabetes mellitus assisted insulin use: with assisted use Qualified Code(s): E11.9 - Type 2 diabetes mellitus without complications; Z79.4 - retirement (current) use of insulin (6) Seizure disorder Current Visit: Yes Status: Chronic Known history of seizure disorder unspecified. No reported history of seizure activity prompting this visit or overnight seizure-like activity. Recommend discontinue carbamazepine due to known side effect of hyponatremia. Continue per plan of Hospitalist, Neurology consulted. Subjective Principal diagnosis: Hyponatremia, Chest pain Interval history: Patient reports no changes overnight, reports sleeping well. Patient currently A&O x3, but slightly more confused that yesterday. Patient denies fevers, chills, sweats, headaches, lightheadedness, dizziness, changes in vision or hearing, nausea, vomiting, chest pain or pressure, shortness of breath, abdominal pain, changes in bowels or bladder, weakness, or loss of sensation. Nurse reports 2 episodes of incontinence overnight, 24hr urine sample voided. Objective - Vital Signs Vital signs: Vital Signs Temp Pulse Resp BP Pulse Ox 11/20/16 06:53 97.7 F 72 16 167/67 97 11/20/16 04:14 98.2 F 63 16 143/57 98 11/20/16 00:08 97.7 F 71 17 135/53 97 11/19/16 20:56 97.8 F 87 15 149/69 98 11/19/16 19:55 99 11/19/16 17:02 68 11/19/16 15:03 97.5 F L 80 16 120/59 100 11/19/16 12:35 70 11/19/16 11:05 97.7 F 91 16 123/64 Intake and Output 11/19/16 11/20/16 11/20/16 23:59 07:59 15:59 Intake Total 240 / 240 Output Total 200 / 200 150 / 150 Balance 40 / 40 -150 / -150 Intake: Oral 240 / 240 Output: Urine 150 / 150 Straight Cath 200 / 200 Other: Meal Dinner Percent of Meal Consumed 30% Stool Size Moderate Stool Consistency soft Stool Color Brown # Voids 1 1 # Bowel Movements 1 Weight 59.8 kg Blood Glucose* 202 152 Patient Weight 11/20/16 23:59 Weight 59.8 kg - General Appearance General appearance: Present: well-developed, well-nourished, appears started age EENT: Present: mucous membranes moist Neck: Present: no JVD, no thyromegaly, no carotid bruit, supple Respiratory: Present: clear Cardiology: Present: no murmurs Gastrointestinal: Present: normoactive bowel sounds, no tenderness, no guarding Integumentary: Present: no rash, warm and dry Neurologic: Present: no focal deficit, alert and oriented x3 Musculoskeletal: Present: no deformities - Lab 11/19/16 05:48 11/20/16 08:36 Most recent lab results Calcium 8.1 mg/dL (8.6-10.8) L 11/20/16 08:36 Urine Creatinine 49 mg/dL 11/19/16 08:20 Urine Sodium 78.0 mEq/L 11/19/16 08:20 Consult Discharge Plan - Plan Referrals: Frederic Campa MD [Primary Care Provider] - Louise Escalante CNP [Advanced Practice Nurse] - 11/28/16 10:00 am
[2016-11-20] MEDS ORDERED: Tolvaptan 15 MG TABLET PO ONE (10:07)
[2016-11-20] MEDS: (Ezetimibe [Zetia] 10 MG) PO SCH (10:30)
--- NOTE | 2016-11-20 10:40 | Internal Med Progress Note ---
Date of Encounter: 11/20/16 Time of Encounter: 10:37 - Assessment and plan (1) Hyponatremia Current Visit: Yes Status: Acute Assessment and plan: repeat na noted to be 120. has confusion but also has baseline dementia. workup revealed normal TSH. normal cortisol patirebecca appears to have euvolemic hyponatremia, low serum osmolarity, urine osmolaity high---393, high urine NA ---78. may be 2/2 hyper ADH possible SIADH vs salt wasting( unclear etiology). CT head does not show any acute pathology. fluid restriction, was added on salt tabs. discussed with neurology , recommended that we can stop tegretol, carol is taking 100 daily which is very low dose and if no active seizures, can be stopped. chem q6, monitor for seizures. (2) Chest pain Current Visit: Yes Status: Acute Assessment and plan: no chest pain now. h/o stent placed, plavix was held as she was bruising too much. she is only taking baby aspirin tropx3 is negative, no EKG changes may be 2/2 HTN urgency, BP much controlled this time. Qualifiers: Qualified Code(s): R07.9 - Chest pain, unspecified (3) Diabetes Current Visit: No Status: Chronic Assessment and plan: will continue lispro sliding scale for now. Qualifiers: Qualified Code(s): E11.9 - Type 2 diabetes mellitus without complications (4) HTN (hypertension) Current Visit: Yes Status: Chronic Assessment and plan: will continue current BP meds, Hydralazine prn. Qualifiers: Qualified Code(s): I10 - Essential (primary) hypertension (5) Dementia Current Visit: Yes Status: Chronic Assessment and plan: alert and awake , remains confused. Qualifiers: Qualified Code(s): F03.90 - Unspecified dementia without behavioral disturbance (6) CAD (coronary artery disease) Current Visit: No Status: Chronic Qualifiers: Qualified Code(s): I25.10 - Atherosclerotic heart disease of [place] coronary artery without angina pectoris (7) Carotid stenosis, left Current Visit: No Status: Chronic - Subjective Interval history: carol preseneted with chest pain and HTN urgency, being treated for acute hyponatremia, seen at the bedside [facility] tian Patient still appears to be confused and disoriented, however not agitated. No seizures or active events overnight. started on salt tabs yesterday repeat sodium is 120 this morning. code status discussed this morning in the presence of the daughter, the daughter explained that the patient never wanted any resuscitation or intubation. - Constitutional Vitals: Temp Pulse Resp BP Pulse Ox 97.7 F 72 16 167/67 97 11/20/16 06:53 11/20/16 06:53 11/20/16 06:53 11/20/16 06:53 11/20/16 06:53 General appearance: Present: A&O X 3, no acute distress Exam: not oreinted to time and place neck- supple chest- b/l clear, no added sounds CVS-s1 and s2, no mr//g abd-soft, non tender, bs are present ext- no edema neuro-no focal defeicts, pleasantly confused,not oreinted to time and place Internal Medicine: Result - Labs CBC & Chem 7: 11/19/16 05:48 11/20/16 08:36 Labs: BMP 11/19/16 11/19/16 11/19/16 10:29 18:05 22:03 Sodium 118 L* 120 L* 121 L Potassium 3.4 L 4.3 3.5 Chloride 82 L 86 L 84 L Carbon Dioxide 25 22 26 BUN 16 21 H 21 H Creatinine 0.93 0.89 0.94 Glucose 266 H 163 H 199 H Calcium 8.3 L 8.0 L 8.0 L 11/20/16 11/20/16 04:21 08:36 Sodium 120 L* 120 L* Potassium 3.6 3.1 L Chloride 86 L 86 L Carbon Dioxide 22 23 BUN 21 H 19 Creatinine 0.86 0.85 Glucose 136 H 184 H Calcium 8.1 L 8.1 L Urine 11/19/16 Range/Units 18:58 Urine Color Yellow (Yellow) Urine Clarity Clear (Clear) Urine pH 6.5 (5.0-8.0) pH Units Ur Specific [place] 1.016 (1.010-1.025) Urine Protein Trace (Neg-Trace) mg/dL Urine Glucose (UA) Normal (Normal) mg/dL - ABG Interpretation ABG results: PT/INR, D-dimer PT 10.7 Seconds (9.4-12.1) 11/18/16 12:15 Consult Discharge Plan - Plan Referrals: Frederic Campa MD [Primary Care Provider] - Louise Escalante, HOSTESS [Advanced Practice Nurse] - 11/28/16 10:00 am
[2016-11-20 17:51] LABS: BUN/Creatinine Ratio 22 (6-26); Blood Urea Nitrogen 20 mg/dL (7-20); Calcium 8.3 mg/dL (8.6-10.8); Carbon Dioxide 27 mEq/L (19-29); Chloride 88 mEq/L (98-109); Glucose 163 mg/dL (70-99); Osmolality,Calculated 264 (280-300); Sodium 124 mEq/L (136-145); eGFR For African Americans > 60 (> 60); eGFR For Non-African Americans 59 (> 60)
[2016-11-20 17:55] LABS: Potassium 4.5 mEq/L (3.5-4.5)
[2016-11-20] MEDS: *HR* Labetalol 20 MG/4 ML SYRINGE IVP PRN (22:27)
[2016-11-21] MEDS: *HR* Labetalol 20 MG/4 ML SYRINGE IVP PRN (00:40)
[2016-11-21 04:54] LABS: BUN/Creatinine Ratio 24 (6-26); Blood Urea Nitrogen 20 mg/dL (7-20); Calcium 8.1 mg/dL (8.6-10.8); Carbon Dioxide 27 mEq/L (19-29); Chloride 96 mEq/L (98-109); Glucose 129 mg/dL (70-99); Osmolality,Calculated 274 (280-300); Potassium 4.2 mEq/L (3.5-4.5); Sodium 130 mEq/L (136-145); eGFR For African Americans > 60 (> 60); eGFR For Non-African Americans > 60 (> 60)
[2016-11-21] MEDS: *HR* Enoxaparin 30 MG/0.3 ML SYRINGE SQ SCH (06:21)
--- NOTE | 2016-11-21 07:55 | Nephrology Progress Note ---
Date of Encounter: 11/21/16 Time of Encounter: 07:55 - Assessment and Plan (1) Hyponatremia Current Visit: Yes Status: Acute Hyponatremia, euvolemic. 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 Patient is A&O x1, significantly more altered than yesterday. Overnight patient had acute AMS and night Hospitalist was contacted. Patient initially did not respond well and appeared to be in a daze. Patient was able to open eyes spontaneously and answer some questions. Patient was able to move head, but unable to move extremities when elicited. Sodium 130 this morning, 132 on repeat. Corrected from 120 in the past 24 hours. We are concerned for symptomatic overcorrection of hyponatremia. Previous labs: Serum osm 259, Urine osm 393, Urine Cr 49, Urine sodium 78, uric acid 2.3, random cortisol 18.6, TSH normal. 24hr urine sample was voided due to 2 episodes of incontinence overnight. Salt tablets discontinued. Continue following sodium q4h. Monitor I&O. D5 water ordered DDAVP ordered stat. Appreciate neurology input for further recommendations. Continue to monitor vitals and exam. Goal sodium return back to 125. (2) HTN (hypertension) Current Visit: Yes Status: Chronic Bp 147/68, rate 76 Continue losartan and labetalol prn Discontinued indapamide (thiazide) Continue monitoring bp. Goal bp <150/90 Continue per plan of hospitalist. Qualifiers: Hypertension type: essential hypertension Qualified Code(s): I10 - Essential (primary) hypertension (3) Chest pain Current Visit: Yes Status: Acute Patient was admitted yesterday from the ED with complaint of Chest pain. Patient denies chest pain this morning or overnight. Continue per plan of hospitalist. Qualifiers: Chest pain type: unspecified Qualified Code(s): R07.9 - Chest pain, unspecified (4) Dementia Current Visit: Yes Status: Chronic Patient has a known history of dementia. A&O x1 to person only. Acute AMS noted by nurse overnight. Continue per plan of Hospitalist. Qualifiers: Dementia type: unspecified type Dementia behavioral disturbance: without behavioral disturbance Qualified Code(s): F03.90 - Unspecified dementia without behavioral disturbance (5) Type 2 diabetes mellitus Current Visit: Yes Status: Chronic Patient with known history of type II diabetes on insulin. Glucose 129. Continue monitoring labs Continue per plan of hospitalist. NPO status at this time due to subjective dysphagia. Qualifiers: Diabetes mellitus complication status: without complication Diabetes mellitus termite control service representative insulin use: with termite control service representative use Qualified Code(s): E11.9 - Type 2 diabetes mellitus without complications; Z79.4 - alf (current) use of insulin (6) Seizure disorder Current Visit: Yes Status: Chronic Known history of seizure disorder unspecified. No reported history of seizure activity prompting this visit or overnight seizure-like activity. Tegretol discontinued, Neurology onboard. Continue per plan of Hospitalist. Subjective Principal diagnosis: Hyponatremia, Chest pain Interval history: Upon entering the room this morning, patient is significantly confused, not responding very well, and appeared to be in a daze. I spoke to the nurse regarding any events overnight. Reports that patient had acute AMS and was not following commands and not responding to stimuli, possibly having some rapid tremor like eye movements. Nurses note reviewed, patient was notably weak and had flaccid hand grasp. Night Hospitalist called and noted to let the patient rest. Entered room this morning with day Hospitalist, patient appears more alert than when I saw her this morning and is conversing, but is significantly more altered from prior day assessments. Patient reports headache and not sleeping well. Patient currently A&O to person only, significantly more confused than yesterday. Patient is able to move head, but unable to move extremities when asked and reports actively trying to move them. Patient also reports some increased difficulty breathing, but able to take in deep breath when elicited. Sodium corrected from 120 to 130 in the past 24 hours. Changes in medication since yesterday included one dose of tolvaptan and discontinuance of tegretol per Neurology. We are concerned for symptomatic overcorrection of hyponatremia. Objective - Vital Signs Vital signs: Vital Signs Temp Pulse Resp BP Pulse Ox 11/21/16 07:28 98.0 F 76 16 147/68 97 11/21/16 06:00 134/57 11/21/16 04:05 97.8 F 70 14 127/55 98 11/21/16 02:00 110/50 11/21/16 01:00 146/64 11/21/16 00:00 99.5 F 79 18 193/82 98 11/20/16 20:49 97.7 F 82 16 181/72 99 11/20/16 16:23 97.9 F 75 16 150/50 11/20/16 11:25 98.0 F 74 16 104/49 Intake and Output 11/20/16 11/20/16 11/21/16 15:59 23:59 07:59 Intake Total 800 / 800 120 / 120 Output Total 500 / 500 200 / 200 Balance 300 / 300 120 / 120 -200 / -200 Intake: Oral 800 / 800 120 / 120 Output: Urine 500 / 500 200 / 200 Other: Meal Dinner Percent of Meal Consumed 10% # Voids 1 1 # Urine Diapers 1 # Bowel Movements 0 # Bowel Movement Diapers 0 Weight 62.7 kg Blood Glucose* 243 225 182 Patient Weight 11/21/16 23:59 Weight 62.7 kg - General Appearance General appearance: Present: well-developed, well-nourished, appears started age EENT: Present: PERRL, mucous membranes dry, hearing intact, vision intact Neck: Present: no JVD, no carotid bruit, supple Respiratory: Present: clear Cardiology: Present: no murmurs, regular rate, regular rhythm, normal S1, normal S2 Gastrointestinal: Present: normoactive bowel sounds, no tenderness, no guarding Integumentary: Present: no rash, warm and dry Additional Comments: upper and lower extremity weakness noted, sensation intact throughout, Alert and oriented to person only. Musculoskeletal: Present: no deformities, no erythema, no cyanosis, no clubbing Psychiatric: Present: mood/affect appropriate, cooperative - Lab 11/21/16 08:31 11/21/16 09:26 Most recent lab results Calcium 8.1 mg/dL (8.6-10.8) L 11/21/16 04:05 Urine Creatinine 49 mg/dL 11/19/16 08:20 Urine Sodium 78.0 mEq/L 11/19/16 08:20 Consult Discharge Plan - Plan Referrals: Frederic Campa MD [Primary Care Provider] - Louise Escalante CNP [Advanced Practice Nurse] - 11/28/16 10:00 am
[2016-11-21 08:55] LABS: Basophils # 0.1 K/mcL (0.0-0.2); Basophils % 0.6 %; Eosinophils # 0.1 K/mcL (0.0-0.6); Eosinophils % 0.9 %; Hematocrit 32.3 % (35.3-44.9); Hemoglobin 11.6 g/dL (11.5-15.4); Immature Granulocytes % 0.6 % (0-4); Lymphocytes # 1.6 K/mcL (0.6-4.6); Lymphocytes % 20.1 %; Mean Corpuscular HGB Conc 35.9 g/dL (31.6-35.5); Mean Platelet Volume 8.7 fL (9.4-12.4); Monocytes # 0.8 K/mcL (0.0-1.3); Neutrophils # 5.3 K/mcL (1.6-8.9); Platelet Count 216 K/mcL (140-400); Red Blood Count 3.63 M/mcL (3.82-4.97); Red Cell Distribution Width 12.1 % (11.5-14.5); Segmented Neutrophils % 67.8 %
[2016-11-21] MEDS ORDERED: D5% in Water 1,000 ML IVC SCH ×3 (09:00→21:38)
--- NOTE | 2016-11-21 09:03 | Event Note ---
Date of Encounter: 11/21/16 Time of Encounter: 08:50 Concerned for symptomatic overcorrection of hyponatremia. On exam, she is unable to move all four extremities. I've asked the nurse to monitor respiratory function as well. Must quickly lower the PNa, so I've ordered stat D5W and am placing a stat order for DDAVP. Agree with Neurology consult. Will follow closely.
[2016-11-21] MEDS: Insulin LISPRO 300 UNITS/3 ML VIAL SQ SCH ×3 (09:22→16:20)
[2016-11-21] MEDS: Aspirin 81 MG TAB.CHEW PO SCH (09:22)
[2016-11-21] MEDS: (Ezetimibe [Zetia] 10 MG) PO SCH (09:24)
--- NOTE | 2016-11-21 12:54 | Neurology - Consult Note ---
Date of Encounter: 11/21/16 Time of Encounter: 12:40 Assessment and Plan (1) Generalized weakness Current Visit: Yes Status: Acute History of Present Illness Chief complaint: AMS/weakness HPI: Ms. Galaviz is a 81 year old female with PMH significant for DM2, HTN, seizures, dementia, CAD, and left sided carotid stenosis who presented to [facility] on 11/18/16 chest pain. Cardiac workup has been negative, but the patient was found to be hyponatremic. She arrived with a Na of 118 on 11/18, which has progressed to 121 on 11/19, 124 on 11/20, and now this morning was 132. Overnight the patient had worsening mental status with associated weakness reported by nursing staff. Per documentation the patient is much more altered today with an acute change since yesterday. Upon entering the room the patient will open her eyes spontaneously, but only briefly. She is oriented to self. She is able to follow some minor commands such as squeezing my fingers and wiggling her toes, but she is profoundly weak. She is able move her head and reports feeling weak, but is currently somnolent and needs frequent prompting to answer questions. Past Med Surg Social Fam HX - Past Medical History Medical history: coronary artery disease, dementia, diabetes, hyperlipidemia, hypertension, seizures, syncope, TIA, other Psychiatric history: no psych history - Past Surgical History Surgical History: cholecystectomy, knee replacement, ELENI/BSO, other - Social History Smoking Status: Never smoker Smokeless Tobacco Status: No Alcohol use: none Drug use: none - Family History Mother Living Status: Father Living Status: Hx Family Endocrine Disorder: Yes (diabetes) Sister Hx Family Cancer: Yes (breast cancer) Medications and Allergies CarBAMazepine [Carbamazepine ER] 200 mg PO BID 09/03/15 [History] Cholecalciferol (Vitamin D3) [Vitamin D3] 1,000 unit PO DAILY 09/03/15 [History] Ezetimibe [Zetia] 10 mg PO DAILY 09/03/15 [History] Indapamide [Lozol] 2.5 mg PO DAILY 09/03/15 [History] Losartan Potassium [Cozaar] 50 mg PO DAILY 09/03/15 [History] Raloxifene [Evista] 60 mg PO DAILY 09/03/15 [History] CarBAMazepine [Carbamazepine ER] 100 mg PO 1200 03/17/16 [History] Pantoprazole Sodium [Protonix] 40 mg PO BID 03/17/16 [History] Potassium Chloride 10 meq PO DAILY 03/17/16 [History] Cyanocobalamin (B-12) [Vitamin B12] 1,000 mcg IJ QMONTH 06/24/16 [History] Insulin Glargine,Hum.rec.anlog [Toujeo Solostar] 10 unit SQ DAILY 06/24/16 [ History] Allergy Injection 1 each SQ QMONTH 11/18/16 [History] Aspirin 81 mg PO DAILY 11/18/16 [History] Allergies acetaminophen [From Vicodin] Allergy (Verified 11/18/16 14:14) Rash cephalexin Allergy (Verified 11/18/16 14:14) Rash codeine Allergy (Verified 11/18/16 14:14) Rash hydrocodone [From Vicodin] Allergy (Verified 11/18/16 14:14) Rash Penicillins [PCN] Allergy (Verified 11/18/16 14:14) Rash Sulfa (Sulfonamide Antibiotics) Allergy (Verified 11/18/16 14:14) Rash ROS unobtainable: due to mental status All Systems: A 10-system review of systems was performed and is negative for pertinent findings except as documented above in the HPI. Physical Examination - Vital Signs Vital Signs: Initial Vital Signs Temp Pulse Resp BP Pulse Ox 98.2 F 60 18 210/93 99 11/18/16 12:05 11/18/16 12:05 11/18/16 12:05 11/18/16 12:05 11/18/16 12:05 - Constitutional General appearance: other (somnolent) - Neurologic Detailed motor examination: other (The patient is profoundly weak. Testing is difficult due to lack of patient cooperation. She is able to wiggle her toes, but does not participate in strength testing of the lower extremities. She can flex and extend her forearms against gravity, but will not participate in strength testing of the shoulders or wrists. Unable to perform cerebellar testing due to lack of patient participation.) Motor examination - right side: 2/5: creative lead, 3/5: biceps, triceps Motor examination - left side: 2/5: creative lead, 3/5: biceps, triceps Detailed sensory examination: intact, other (Patient is able to discriminate gross touch between right and left side in all extremities.) Reflexes: Biceps: 1+, Brachioradialis: 1+, Patella: 1+ (difficult to elicit of the left due to previous knee replacement), Achilles: 0 Mental Status Examination: awake (but somnolent. needs frequent coaxing to follow commands), oriented to person, drowsy, opens eyes to voice, opens eyes to noxious stimulation, makes eye contact, follows simple commands, localizes noxious stimulation, grimmacing Cranial nerve examination: PERRL, EOMI, corneal reflexes brisk symmetrically, sensory to face intact, mastication intact, no facial asymmetry is present, hearing is intact symmetrically (answers questions appropriately, but was not able to hear fingers rubbing together on exam), soft palate elevates bilaterally upon phonation, tongue protrudes midline, no atrophy or facial fasiculations present Results - Laboratory Findings CBC and BMP: 11/21/16 08:31 11/21/16 09:26 Abnormal lab findings: Abnormal lab results RBC 3.63 M/mcL (3.82-4.97) L 11/21/16 08:31 Hct 32.3 % (35.3-44.9) L 11/21/16 08:31 MCHC 35.9 g/dL (31.6-35.5) H 11/21/16 08:31 MPV 8.7 fL (9.4-12.4) L 11/21/16 08:31 Sodium 132 mEq/L (136-145) L 11/21/16 09:26 Chloride 96 mEq/L (98-109) L 11/21/16 04:05 Glucose 129 mg/dL (70-99) H 11/21/16 04:05 POC Glucose 225 (58-89) H 11/20/16 20:53 Serum Osmolality 259 mOsm/kg (280-300) L 11/19/16 12:17 Calculated Osmolality 274 (280-300) L 11/21/16 04:05 Uric Acid 2.3 mg/dL (2.6-6.0) L 11/19/16 12:17 Calcium 8.1 mg/dL (8.6-10.8) L 11/21/16 04:05 Ur Squamous Epith Cells Moderate per lpf (None-Few) H 11/19/16 18:58 Consult Discharge Plan - Plan Referrals: Frederic Campa MD [Primary Care Provider] - Louise Escalante CNP [Advanced Practice Nurse] - 11/28/16 10:00 am
--- NOTE | 2016-11-21 13:24 | Internal Med Progress Note ---
Date of Encounter: 11/21/16 Time of Encounter: 13:17 - Assessment and plan (1) Hyponatremia Current Visit: Yes Status: Acute Assessment and plan: repeat na noted to be 130.worsening confusion today. nephrology following, mental status worsening possible 2/2 overcorrection of the sodium, s/p ddAVP and is started on D5, case discussed with DR. Sepulveda, goal NA ---124-125 workup revealed normal TSH. normal cortisol patinet appears to have euvolemic hyponatremia, low serum osmolarity, urine osmolaity high---393, high urine NA ---78. s/p vaptan yesterday for possible SIADH vs salt wasting( unclear etiology). CT head does not show any acute pathology. neurology has been consulted. currently NPO given worsening mental status. (2) Chest pain Current Visit: Yes Status: Acute Assessment and plan: no chest pain now. h/o stent placed, plavix was held as she was bruising too much. she is only taking baby aspirin tropx3 is negative, no EKG changes may be 2/2 HTN urgency, BP much controlled this time. Qualifiers: Chest pain type: unspecified Qualified Code(s): R07.9 - Chest pain, unspecified (3) Diabetes Current Visit: No Status: Chronic Assessment and plan: will hold insulin as she is NPO now. Qualifiers: Diabetes mellitus type: type 2 Diabetes mellitus complication status: without complication Qualified Code(s): E11.9 - Type 2 diabetes mellitus without complications (4) HTN (hypertension) Current Visit: Yes Status: Chronic Assessment and plan: will continue Hydralazine prn. Qualifiers: Hypertension type: essential hypertension Qualified Code(s): I10 - Essential (primary) hypertension (5) Dementia Current Visit: Yes Status: Chronic Assessment and plan: remains confused. Qualifiers: Dementia type: unspecified type Dementia behavioral disturbance: without behavioral disturbance Qualified Code(s): F03.90 - Unspecified dementia without behavioral disturbance (6) CAD (coronary artery disease) Current Visit: No Status: Chronic Qualifiers: Coronary Disease-Associated Artery/Lesion type: [place] artery [place] vs. transplanted heart: [place] heart Associated angina: without angina Qualified Code(s): I25.10 - Atherosclerotic heart disease of [place] coronary artery without angina pectoris (7) Carotid stenosis, left Current Visit: No Status: Chronic - Subjective Interval history: patinet preseneted with chest pain and HTN urgency, being treated for acute hyponatremia, seen at the bedside augusto overton Patient appears to be more confused today and is somnolent. No seizures overnight, she responds minimally to commands and squeeze my hands however says she cannot move her legs. repeat sodium is 130 this morning, renal following code status discussed in the presence of the daughter, the daughter explained that the patient never wanted any resuscitation or intubation. - Constitutional Vitals: Temp Pulse Resp BP Pulse Ox 98.2 F 81 16 133/63 96 11/21/16 11:48 11/21/16 12:00 11/21/16 11:48 11/21/16 11:48 11/21/16 11:48 General appearance: Present: A&O X 3, no acute distress Exam: not oreinted to time and place neck- supple chest- b/l clear, no added sounds CVS-s1 and s2, no mr//g abd-soft, non tender, bs are present ext- no edema neuro-somnolent and confused, minimally following commands, says she cannot lift her legs. Internal Medicine: Result - Labs CBC & Chem 7: 11/21/16 08:31 11/21/16 09:26 Labs: Short CBC 11/21/16 Range/Units 08:31 WBC 7.8 (4.3-11.1) K/mcL Hgb 11.6 (11.5-15.4) g/dL Hct 32.3 L (35.3-44.9) % Plt Count 216 (140-400) K/mcL Neutrophils # 5.3 (1.6-8.9) K/mcL BMP 11/20/16 11/20/16 11/21/16 17:30 20:15 00:25 Sodium 124 L 125 L 129 L Potassium 4.5 D Chloride 88 L Carbon Dioxide 27 BUN 20 Creatinine 0.92 Glucose 163 H Calcium 8.3 L 11/21/16 11/21/16 11/21/16 04:05 08:31 09:26 Sodium 130 L 132 L 132 L Potassium 4.2 Chloride 96 L Carbon Dioxide 27 BUN 20 Creatinine 0.83 Glucose 129 H Calcium 8.1 L - ABG Interpretation ABG results: PT/INR, D-dimer PT 10.7 Seconds (9.4-12.1) 11/18/16 12:15 - Impressions Impressions Head CT 11/21/16 10:54 IMPRESSION: 1. No acute intracranial abnormality. 2. There is unchanged encephalomalacia involving the frontal lobes bilaterally. 3. Global parenchymal volume loss with chronic microvascular ischemic change. 4. Extensive atherosclerosis. 5. Extra-axial calcification is seen within the middle cranial fossa bilaterally, which may represent calcified meningiomas. D/ / Meño Rock MD / Meño Rock MD Interpreting Provider: Meño Rock MD Consult Discharge Plan - Plan Referrals: Frederic Campa MD [Primary Care Provider] - Louise Escalante CNP [Advanced Practice Nurse] - 11/28/16 10:00 am
--- NOTE | 2016-11-21 14:22 | Neurology - Consult Note ---
Date of Encounter: 11/21/16 Time of Encounter: 14:20 Assessment and Plan (1) Mental status change Current Visit: Yes Status: Acute It is my impression that the patient is likely encephalopathic, on top of baseline cognitive impairment which was mild per medical records, this can certainly be related to her hyponatremia or correcting hyponatremia too quickly. Currently neurological examination did not show typical pattern of the acute central pontine myelinolysis. Her mental status appears better than what she appears to be and her neurological examination appears unreliable and i found no convincing evidence of true focal weakness. Her hand healthcare educator at least 4/ 5 motor strength, and her extensor muscle strength in lower extremities are 5/ 5. I expect her mental status to improve. if symptoms persist then an MRI of brain without contrast may help to rule out central pontine myelinolysis but it would likely not make any differences in terms of treatment plan or prognosis. Please continue medical and supportive Qualifiers: Altered mental status type: transient alteration of awareness Qualified Code(s): R40.4 - Transient alteration of awareness History of Present Illness Chief complaint: acute mental status changes HPI: Ms. Galaviz is a 81 year old female with PMH significant for DM, HTN, mild cognitive impairment, history of CKD, bilateral carotid artery disease who developed acute onset of chest pain 4 days ago. She is hospital admission day number 4 now. She was initially admitted due to chest pain and subsequently found to have hyponatremia at 121 and then was given indapamide and second day the sodium was 118. However, the patient was reportedly alert and oriented while her hyponatremia was being corrected. 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 Sodium level 132 now. Patient seen and examined in the presence of Dr. Hayder Martniez. Patient is laying in bed comfortable with her eyes close. Normally patient does not open her eyes but spontaneous eye blinking noted. CT of head showed no acute changes from previous study obtained 2 days ago. Past Med Surg Social Fam HX - Past Medical History Medical history: coronary artery disease, dementia, diabetes, hyperlipidemia, hypertension, seizures, syncope, TIA, other Psychiatric history: no psych history - Past Surgical History Surgical History: cholecystectomy, knee replacement, ELENI/BSO, other - Social History Smoking Status: Never smoker Smokeless Tobacco Status: No Alcohol use: none Drug use: none - Family History Mother Living Status: Father Living Status: Hx Family Endocrine Disorder: Yes (diabetes) Sister Hx Family Cancer: Yes (breast cancer) Medications and Allergies CarBAMazepine [Carbamazepine ER] 200 mg PO BID 09/03/15 [History] Cholecalciferol (Vitamin D3) [Vitamin D3] 1,000 unit PO DAILY 09/03/15 [History] Ezetimibe [Zetia] 10 mg PO DAILY 09/03/15 [History] Indapamide [Lozol] 2.5 mg PO DAILY 09/03/15 [History] Losartan Potassium [Cozaar] 50 mg PO DAILY 09/03/15 [History] Raloxifene [Evista] 60 mg PO DAILY 09/03/15 [History] CarBAMazepine [Carbamazepine ER] 100 mg PO 1200 03/17/16 [History] Pantoprazole Sodium [Protonix] 40 mg PO BID 03/17/16 [History] Potassium Chloride 10 meq PO DAILY 03/17/16 [History] Cyanocobalamin (B-12) [Vitamin B12] 1,000 mcg IJ QMONTH 06/24/16 [History] Insulin Glargine,Hum.rec.anlog [Toujeo Solostar] 10 unit SQ DAILY 06/24/16 [ History] Allergy Injection 1 each SQ QMONTH 11/18/16 [History] Aspirin 81 mg PO DAILY 11/18/16 [History] Allergies acetaminophen [From Vicodin] Allergy (Verified 11/18/16 14:14) Rash cephalexin Allergy (Verified 11/18/16 14:14) Rash codeine Allergy (Verified 11/18/16 14:14) Rash hydrocodone [From Vicodin] Allergy (Verified 11/18/16 14:14) Rash Penicillins [PCN] Allergy (Verified 11/18/16 14:14) Rash Sulfa (Sulfonamide Antibiotics) Allergy (Verified 11/18/16 14:14) Rash All Systems: A 10-system review of systems was performed and is negative for pertinent findings except as documented above in the HPI. Physical Examination - Vital Signs Vital Signs: Initial Vital Signs Temp Pulse Resp BP Pulse Ox 98.2 F 60 18 210/93 99 11/18/16 12:05 11/18/16 12:05 11/18/16 12:05 11/18/16 12:05 11/18/16 12:05 - Constitutional General appearance: comfortable (Appears comfortable. Admits headaches on top of head. Not giving more information though) - Neurologic Sensorimotor examination: other (Unable to assess. ) Detailed motor examination: other (Patient was encouraged and her hands healthcare educator are 4+/5 bilaterally. She is not cooperative in following commands but is able to squeeze hand equally when encouraged. Lower extremities are able to maintain exteneded legs and actually resists flexion of her legs at the knee.) Motor examination - right side: 4/5: commercial fisher, 5/5: tibialis Anterior Motor examination - left side: 4/5: commercial fisher, 5/5: tibialis Anterior Posture: other (None. No nuchal rigdity. ) Reflex and gait examination: other (Gait not assessed.) Reflexes: Biceps: 0, Triceps: 0, Brachioradialis: 0, Patella: 0, Achilles: 0 Mental Status Examination: awake, alert, follows simple commands (Patient's mental status difficult to assess. Patient appears wide awake but keeps her eyes closed. She occasional opens hers eye quickly and then refused to do so. Able to tell me that she has headaches on top of head. Not cooperative.) Cranial nerve examination: PERRL, EOMI (Patient does not follow commands but eye movements appear full. No gaze preference. Eye pursuant movement is quick. ) , visual novak intact, corneal reflexes brisk symmetrically, sensory to face intact, mastication intact, no facial asymmetry is present, no dysarthria, hearing is intact symmetrically, soft palate elevates bilaterally upon phonation , gag reflex intact (Uanble to assess. ), flexes SCM and trapezius muscles symmetrically with full power, tongue protrudes midline (Unable to assess), no atrophy or facial fasiculations present Results - Laboratory Findings CBC and BMP: 11/21/16 08:31 11/21/16 09:26 Abnormal lab findings: Abnormal lab results RBC 3.63 M/mcL (3.82-4.97) L 11/21/16 08:31 Hct 32.3 % (35.3-44.9) L 11/21/16 08:31 MCHC 35.9 g/dL (31.6-35.5) H 11/21/16 08:31 MPV 8.7 fL (9.4-12.4) L 11/21/16 08:31 Sodium 132 mEq/L (136-145) L 11/21/16 09:26 Chloride 96 mEq/L (98-109) L 11/21/16 04:05 Glucose 129 mg/dL (70-99) H 11/21/16 04:05 POC Glucose 225 (58-89) H 11/20/16 20:53 Serum Osmolality 259 mOsm/kg (280-300) L 11/19/16 12:17 Calculated Osmolality 274 (280-300) L 11/21/16 04:05 Uric Acid 2.3 mg/dL (2.6-6.0) L 11/19/16 12:17 Calcium 8.1 mg/dL (8.6-10.8) L 11/21/16 04:05 Ur Squamous Epith Cells Moderate per lpf (None-Few) H 11/19/16 18:58 Consult Discharge Plan - Plan Instructions: 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
[2016-11-22] MEDS: Insulin LISPRO 300 UNITS/3 ML VIAL SQ SCH ×4 (00:35→17:32)
[2016-11-22 04:10] LABS: Basophils % 0.3 %; Eosinophils # 0.1 K/mcL (0.0-0.6); Eosinophils % 0.9 %; Hematocrit 32.7 % (35.3-44.9); Hemoglobin 11.5 g/dL (11.5-15.4); Immature Granulocytes % 0.6 % (0-4); Lymphocytes % 8.5 %; Mean Corpuscular HGB Conc 35.2 g/dL (31.6-35.5); Mean Corpuscular Hemoglobin 31.9 pg (28.0-33.3); Mean Corpuscular Volume 90.6 fL (83.0-100.0); Mean Platelet Volume 8.4 fL (9.4-12.4); Monocytes # 1.1 K/mcL (0.0-1.3); Monocytes % 9.4 %; Neutrophils # 9.2 K/mcL (1.6-8.9); Platelet Count 211 K/mcL (140-400); Red Blood Count 3.61 M/mcL (3.82-4.97); Red Cell Distribution Width 12.1 % (11.5-14.5); Segmented Neutrophils % 80.3 %
[2016-11-22 04:28] LABS: BUN/Creatinine Ratio 18 (6-26); Blood Urea Nitrogen 15 mg/dL (7-20); Calcium 8.1 mg/dL (8.6-10.8); Carbon Dioxide 25 mEq/L (19-29); Chloride 92 mEq/L (98-109); Glucose 251 mg/dL (70-99); Osmolality,Calculated 269 (280-300); Potassium 4.3 mEq/L (3.5-4.5); Sodium 125 mEq/L (136-145); eGFR For African Americans > 60 (> 60); eGFR For Non-African Americans > 60 (> 60)
[2016-11-22] MEDS: *HR* Enoxaparin 30 MG/0.3 ML SYRINGE SQ SCH (06:05)
[2016-11-22] MEDS: Aspirin 81 MG TAB.CHEW PO SCH (08:36)
[2016-11-22] MEDS: (Ezetimibe [Zetia] 10 MG) PO SCH (08:36)
--- NOTE | 2016-11-22 08:51 | Internal Med Progress Note ---
Date of Encounter: 11/22/16 Time of Encounter: 08:48 - Assessment and plan (1) Hyponatremia Current Visit: Yes Status: Acute Assessment and plan: repeat na noted to be 125, mental status has improved. nephrology following , mental status may have worsened 2/2 overcorrection of the sodium yesterday, s/p ddAVP and was started on D5. this sodium level of 124-125 may be ideal for her at this time, paul hold D5 at this time to avoid further hyponatremia. start diet today. neurology was consulted and said no focal defecits at this time and less likely CPDM. workup revealed normal TSH. normal cortisol received vaptan for possible SIADH vs salt wasting( unclear etiology). CT head does not show any acute pathology. (2) Chest pain Current Visit: Yes Status: Acute Assessment and plan: no chest pain now. h/o stent placed, plavix was held as she was bruising too much. she is only taking baby aspirin tropx3 is negative, no EKG changes may be 2/2 HTN urgency, BP much controlled this time. Qualifiers: Chest pain type: unspecified Qualified Code(s): R07.9 - Chest pain, unspecified (3) Diabetes Current Visit: No Status: Chronic Assessment and plan: will start low dose sliding Qualifiers: Diabetes mellitus type: type 2 Diabetes mellitus complication status: without complication Qualified Code(s): E11.9 - Type 2 diabetes mellitus without complications (4) HTN (hypertension) Current Visit: Yes Status: Chronic Assessment and plan: will continue oral anti HTN meds and Hydralazine prn. Qualifiers: Hypertension type: essential hypertension Qualified Code(s): I10 - Essential (primary) hypertension (5) Dementia Current Visit: Yes Status: Chronic Assessment and plan: currently at baseline. will possible need placement to [place] or rehab. Qualifiers: Dementia type: unspecified type Dementia behavioral disturbance: without behavioral disturbance Qualified Code(s): F03.90 - Unspecified dementia without behavioral disturbance (6) CAD (coronary artery disease) Current Visit: No Status: Chronic Qualifiers: Coronary Disease-Associated Artery/Lesion type: [place] artery [place] vs. transplanted heart: [place] heart Associated angina: without angina Qualified Code(s): I25.10 - Atherosclerotic heart disease of [place] coronary artery without angina pectoris (7) Carotid stenosis, left Current Visit: No Status: Chronic - Subjective Interval history: patinet preseneted with chest pain and HTN urgency, being treated for acute hyponatremia, seen at the bedside augusto overton Patient appears to be much more awake and alert, less confused than yesterday. reponding and following commands, asking for food. repeat sodium at 125. renal and neurology following - Constitutional Vitals: Temp Pulse Resp BP Pulse Ox 98.0 F 76 18 112/53 97 11/22/16 07:53 11/22/16 07:53 11/22/16 07:53 11/22/16 07:53 11/22/16 07:53 General appearance: Present: A&O X 3, no acute distress Exam: neck- supple chest- b/l clear. no added sounds CVS-s1 and s2., no m/r/g abd-soft, non tender, bs are present ext- no edema neuro- mild confusion, alert and awake, moving all ext. Internal Medicine: Result - Labs CBC & Chem 7: 11/22/16 04:00 11/22/16 04:00 Labs: Short CBC 11/21/16 11/22/16 Range/Units 08:31 04:00 WBC 7.8 11.5 H (4.3-11.1) K/mcL Hgb 11.6 11.5 (11.5-15.4) g/dL Hct 32.3 L 32.7 L (35.3-44.9) % Plt Count 216 211 (140-400) K/mcL Neutrophils # 5.3 9.2 H (1.6-8.9) K/mcL BMP 11/21/16 11/21/16 11/21/16 08:31 09:26 15:54 Sodium 132 L 132 L 130 L Potassium Chloride Carbon Dioxide BUN Creatinine Glucose Calcium 11/21/16 11/22/16 11/22/16 20:40 00:30 04:00 Sodium 127 L 126 L 125 L Potassium 4.3 Chloride 92 L Carbon Dioxide 25 BUN 15 Creatinine 0.82 Glucose 251 H Calcium 8.1 L - ABG Interpretation ABG results: PT/INR, D-dimer PT 10.7 Seconds (9.4-12.1) 11/18/16 12:15 - Impressions Impressions Head CT 11/21/16 10:54 IMPRESSION: 1. No acute intracranial abnormality. 2. There is unchanged encephalomalacia involving the frontal lobes bilaterally. 3. Global parenchymal volume loss with chronic microvascular ischemic change. 4. Extensive atherosclerosis. 5. Extra-axial calcification is seen within the middle cranial fossa bilaterally, which may represent calcified meningiomas. 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
[2016-11-22] MEDS ORDERED: D5% in Water 1,000 ML IVC PRN (13:12)
[2016-11-22] MEDS ORDERED: Ibuprofen 400 MG TABLET PO ONE (14:43)
--- NOTE | 2016-11-22 16:42 | Nephrology Progress Note ---
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 Yesterday the PNa had corrected by about 12mEq and I was concerned that at about 8am she was demonstrated paresis on my exam in all four extremities, which the RN had reported was new. So I had made efforts to avoid developing CPM by lowering the PNa back down with DDAVP x1 and D5W. As her PNa neared 125 last night I slowed the D5W and then early this AM, I stopped the D5W. Recommend trending the PNa at least BID. Discussed the above in with the family and patient and answered all their questions. Also discussed with the floor RN. Subjective Principal diagnosis: Hyponatremia, Chest pain Interval history: Pt was seen/examined. She was more alert today and did not affirm N/V. 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 The pt's deacon was also present. She did not affirm any new major symptoms. Objective - Vital Signs Vital signs: Vital Signs Temp Pulse Resp BP Pulse Ox 11/22/16 15:29 81 11/22/16 15:21 80 18 143/63 97 11/22/16 12:10 82 11/22/16 11:31 97.9 F 85 18 123/71 98 11/22/16 08:43 93 Intake and Output 11/22/16 11/22/16 11/22/16 07:59 15:59 23:59 Intake Total 120 / 120 Balance 120 / 120 Intake: Oral 120 / 120 Other: Meal Breakfast Percent of Meal Consumed 5% Blood Glucose* 227 - General Appearance General appearance: Present: cachectic, chronically ill, fatigue, frail EENT: Present: ATNC, mucous membranes dry Neck: Present: supple Respiratory: Present: clear Cardiology: Present: no edema, regular rate, regular rhythm, normal S1, normal S2 Gastrointestinal: Present: normoactive bowel sounds, no tenderness Integumentary: Present: no rash, warm and dry Neurologic: Present: no focal deficit (frail appearing and with a small intention tremor b/l), no asterixis Musculoskeletal: Present: no deformities, no erythema, no cyanosis Psychiatric: Present: cooperative - Lab 11/22/16 04:00 11/22/16 04:00 Most recent lab results Calcium 8.1 mg/dL (8.6-10.8) L 11/22/16 04:00 Urine Creatinine 49 mg/dL 11/19/16 08:20 Urine Sodium 78.0 mEq/L 11/19/16 08:20 Consult Discharge Plan - Plan Instructions: 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
[2016-11-22] MEDS ORDERED: Acetaminophen 325 MG TABLET PO ONE (21:01)
[2016-11-22] MEDS ORDERED: Ondansetron 4 MG/2 ML VIAL IVP PRN (23:50)
[2016-11-23] MEDS: Insulin LISPRO 300 UNITS/3 ML VIAL SQ SCH ×4 (05:10→17:01)
[2016-11-23 05:35] LABS: Basophils % 0.4 %; Eosinophils # 0.1 K/mcL (0.0-0.6); Eosinophils % 1.4 %; Hematocrit 29.1 % (35.3-44.9); Immature Granulocytes % 0.8 % (0-4); Lymphocytes # 1.3 K/mcL (0.6-4.6); Mean Corpuscular Volume 91.2 fL (83.0-100.0); Mean Platelet Volume 8.4 fL (9.4-12.4); Monocytes # 1.1 K/mcL (0.0-1.3); Monocytes % 11.6 %; Neutrophils # 6.7 K/mcL (1.6-8.9); Platelet Count 177 K/mcL (140-400); Red Blood Count 3.19 M/mcL (3.82-4.97); Red Cell Distribution Width 11.9 % (11.5-14.5); Segmented Neutrophils % 71.8 %
[2016-11-23 05:41] LABS: BUN/Creatinine Ratio 21 (6-26); Blood Urea Nitrogen 18 mg/dL (7-20); Calcium 7.8 mg/dL (8.6-10.8); Carbon Dioxide 24 mEq/L (19-29); Chloride 93 mEq/L (98-109); Glucose 201 mg/dL (70-99); Osmolality,Calculated 270 (280-300); Potassium 4.1 mEq/L (3.5-4.5); Sodium 126 mEq/L (136-145); eGFR For African Americans > 60 (> 60); eGFR For Non-African Americans > 60 (> 60)
[2016-11-23 05:43] LABS: Hemoglobin 9.9 g/dL (11.5-15.4)
[2016-11-23] MEDS: *HR* Enoxaparin 30 MG/0.3 ML SYRINGE SQ SCH (06:21)
[2016-11-23] MEDS: Aspirin 81 MG TAB.CHEW PO SCH (07:44)
[2016-11-23] MEDS: (Ezetimibe [Zetia] 10 MG) PO SCH (07:45)
--- NOTE | 2016-11-23 08:54 | Nephrology Progress Note ---
Date of Encounter: 11/23/16 Time of Encounter: 09:50 - Assessment and Plan (1) Hyponatremia Current Visit: Yes Status: Acute Last night I followed upon the afternoon PNa, which was down to 123. Recommend going forward with FR of <1.5L per day and NaCl 1gm po BID for now. No need for a free water diuresis today (i.e., no need for Tolvaptan), and will allow the pt to slowly correct the hyponatremia. Aiming for <6-8 mEq change per 24hr. (2) Generalized weakness Current Visit: Yes Status: Acute As per primary (3) HTN (hypertension) Current Visit: Yes Status: Chronic Agree with Losartan Qualifiers: Hypertension type: essential hypertension Qualified Code(s): I10 - Essential (primary) hypertension Subjective Principal diagnosis: Hyponatremia, Chest pain Interval history: Pt was seen/examined. She was by herself in the room. She did not affirm V/D but did report some mild nausea. She voiced no new major complaints. Objective - Vital Signs Vital signs: Vital Signs Temp Pulse Resp BP Pulse Ox 11/23/16 07:48 98.8 F 77 18 138/60 96 11/23/16 07:35 66 11/23/16 07:30 66 94 11/23/16 04:31 62 18 96 11/23/16 04:13 97.7 F 63 18 123/68 96 11/23/16 00:58 98.4 F 79 17 136/64 96 11/23/16 00:38 67 17 96 11/22/16 21:04 98.3 F 71 18 131/55 98 11/22/16 20:17 86 18 97 11/22/16 18:10 85 127/71 97 11/22/16 17:01 99.2 F 80 18 125/49 97 11/22/16 15:29 81 11/22/16 15:21 80 18 143/63 97 11/22/16 12:10 82 11/22/16 11:31 97.9 F 85 18 123/71 98 Intake and Output 11/22/16 11/23/16 11/23/16 23:59 07:59 15:59 Output Total 150 / 150 Balance -150 / -150 Output: Urine 150 / 150 Other: Meal Dinner Percent of Meal Consumed 0% # Urine Diapers 1 Weight 63 kg Blood Glucose* 194 212 Patient Weight 11/23/16 23:59 Weight 63 kg - General Appearance General appearance: Present: cachectic, chronically ill, frail EENT: Present: mucous membranes moist Neck: Present: supple Respiratory: Present: clear Cardiology: Present: no edema, regular rate, normal S1, normal S2 Gastrointestinal: Present: no tenderness, no guarding Integumentary: Present: no rash, warm and dry Neurologic: Present: no focal deficit, no asterixis Musculoskeletal: Present: no erythema, no clubbing Psychiatric: Present: cooperative - Lab 11/23/16 05:20 11/23/16 05:20 Most recent lab results Calcium 7.8 mg/dL (8.6-10.8) L 11/23/16 05:20 Urine Creatinine 49 mg/dL 11/19/16 08:20 Urine Sodium 78.0 mEq/L 11/19/16 08:20 Consult Discharge Plan - Plan Instructions: 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
--- NOTE | 2016-11-23 10:32 | Internal Med Progress Note ---
Date of Encounter: 11/23/16 Time of Encounter: 10:30 - Assessment and plan (1) Hyponatremia Current Visit: Yes Status: Acute Assessment and plan: repeat na noted to be 126, mental status has improved. nephrology following , s/p ddAVP yesterday, D5 has been stopped. started back on sodim tabs today, appreciate renal recommendations. will continue sodium levels q12h workup revealed normal TSH. normal cortisol received vaptan for possible SIADH . CT head does not show any acute pathology. (2) Chest pain Current Visit: Yes Status: Acute Assessment and plan: no chest pain now. h/o stent placed, plavix was held as she was bruising too much. she is only taking baby aspirin tropx3 is negative, no EKG changes may be 2/2 HTN urgency, BP much controlled this time. Qualifiers: Chest pain type: unspecified Qualified Code(s): R07.9 - Chest pain, unspecified (3) Diabetes Current Visit: No Status: Chronic Assessment and plan: will start low dose sliding Qualifiers: Diabetes mellitus type: type 2 Diabetes mellitus complication status: without complication Diabetes mellitus prison insulin use: without dedicated intermodal truck driver use Qualified Code(s): E11.9 - Type 2 diabetes mellitus without complications (4) HTN (hypertension) Current Visit: Yes Status: Chronic Assessment and plan: will continue oral anti HTN meds and Hydralazine prn. Qualifiers: Hypertension type: essential hypertension Qualified Code(s): I10 - Essential (primary) hypertension (5) Dementia Current Visit: Yes Status: Chronic Assessment and plan: currently at baseline. will possible need placement to [place] or rehab. Qualifiers: Dementia type: unspecified type Dementia behavioral disturbance: without behavioral disturbance Qualified Code(s): F03.90 - Unspecified dementia without behavioral disturbance (6) CAD (coronary artery disease) Current Visit: No Status: Chronic Qualifiers: Coronary Disease-Associated Artery/Lesion type: [place] artery [place] vs. transplanted heart: [place] heart Associated angina: without angina Qualified Code(s): I25.10 - Atherosclerotic heart disease of [place] coronary artery without angina pectoris (7) Carotid stenosis, left Current Visit: No Status: Chronic - Subjective Interval history: patinet preseneted with chest pain and HTN urgency, being treated for acute hyponatremia, seen at the bedside augusto overton Patient appears to be much more awake and alert, seems less confused and oriented to place and person today. responding and following commands, says she feels very tired. repeat sodium at 125. renal following - Constitutional Vitals: Temp Pulse Resp BP Pulse Ox 98.8 F 77 18 138/60 96 11/23/16 07:48 11/23/16 07:48 11/23/16 07:48 11/23/16 07:48 11/23/16 07:48 General appearance: Present: A&O X 3, no acute distress Exam: neck- supple chest- b/l clear, no added sounds CVS-s1 and s2, no mr//g abd-soft, non tender, bs are present ext- no edema neuro- alert and awake, moving all extremities Internal Medicine: Result - Labs CBC & Chem 7: 11/23/16 05:20 11/23/16 05:20 Labs: Short CBC 11/23/16 Range/Units 05:20 WBC 9.3 (4.3-11.1) K/mcL Hgb 9.9 L D (11.5-15.4) g/dL Hct 29.1 L (35.3-44.9) % Plt Count 177 (140-400) K/mcL Neutrophils # 6.7 (1.6-8.9) K/mcL BMP 11/22/16 11/23/16 11/23/16 18:03 01:20 05:20 Sodium 123 L 125 L 126 L Potassium 4.1 Chloride 93 L Carbon Dioxide 24 BUN 18 Creatinine 0.87 Glucose 201 H Calcium 7.8 L - ABG Interpretation ABG results: PT/INR, D-dimer PT 10.7 Seconds (9.4-12.1) 11/18/16 12:15 Consult Discharge Plan - Plan Instructions: 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
[2016-11-23] MEDS ORDERED: Insulin LISPRO 300 UNITS/3 ML VIAL SQ SCH (21:00)
[2016-11-24] MEDS: *HR* Enoxaparin 30 MG/0.3 ML SYRINGE SQ SCH (05:47)
[2016-11-24 06:13] LABS: BUN/Creatinine Ratio 21 (6-26); Blood Urea Nitrogen 17 mg/dL (7-20); Calcium 8.3 mg/dL (8.6-10.8); Carbon Dioxide 24 mEq/L (19-29); Chloride 96 mEq/L (98-109); Glucose 135 mg/dL (70-99); Osmolality,Calculated 274 (280-300); Sodium 130 mEq/L (136-145); eGFR For African Americans > 60 (> 60); eGFR For Non-African Americans > 60 (> 60)
[2016-11-24] MEDS: Insulin LISPRO 300 UNITS/3 ML VIAL SQ SCH ×2 (09:00→11:29)
[2016-11-24] MEDS: (Ezetimibe [Zetia] 10 MG) PO SCH (09:01)
[2016-11-24] MEDS: Aspirin 81 MG TAB.CHEW PO SCH (09:01)
--- NOTE | 2016-11-24 09:15 | Nephrology Progress Note ---
Date of Encounter: 11/24/16 Time of Encounter: 09:14 - Assessment and Plan (1) Hyponatremia Current Visit: Yes Status: Acute Hyponatremia, euvolemic. 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 Sodium 130 this morning, from 126 yesterday. Patient doing well overnight, appears to have more energy today than previous assessments. Discussed paln with family at bedside. No new major symptoms. Continue salt tablets bid check BMP weekly avoid nephrotoxic agents, continue renal protective strategy. Continue fluid restriction Follow up with Nephrology in 3-6 weeks. (2) Generalized weakness Current Visit: Yes Status: Acute Likely due to prolonged bedrest during hospital stay. Plan to be sent to [facility] inpatient rehab. (3) HTN (hypertension) Current Visit: Yes Status: Chronic Bp 128/56, rate 81 Continue monitoring bp. Goal bp <150/90 Continue per plan of hospitalist. Qualifiers: Hypertension type: essential hypertension Qualified Code(s): I10 - Essential (primary) hypertension (4) Chest pain Current Visit: Yes Status: Acute Patient was admitted yesterday from the ED with complaint of Chest pain. Patient denies chest pain this morning or overnight. Workup negative. Continue per plan of Hospitalist. Qualifiers: Chest pain type: unspecified Qualified Code(s): R07.9 - Chest pain, unspecified (5) Dementia Current Visit: Yes Status: Chronic Patient has a known history of dementia. A&O x3, mildly decreased from baseline according to family. May improve with improvement in functioning. Continue per plan of Hospitalist. Qualifiers: Dementia type: unspecified type Dementia behavioral disturbance: without behavioral disturbance Qualified Code(s): F03.90 - Unspecified dementia without behavioral disturbance (6) Type 2 diabetes mellitus Current Visit: Yes Status: Chronic Patient with known history of type II diabetes on insulin. Glucose 135 Continue monitoring labs Continue per plan of hospitalist. Qualifiers: Diabetes mellitus complication status: without complication Diabetes mellitus group home insulin use: with terminal makeup operator use Qualified Code(s): E11.9 - Type 2 diabetes mellitus without complications; Z79.4 - terminal block assembler (current) use of insulin (7) Seizure disorder Current Visit: Yes Status: Chronic Known history of seizure disorder unspecified. No reported history of seizure activity prompting this visit or overnight seizure-like activity. Tegretol discontinued, may have been contributing to hyponatremia. Neurology was consulted during hospital stay. Continue per plan of Hospitalist. Subjective Principal diagnosis: Hyponatremia, Chest pain Interval history: Patient reports doing well overnight and slept very well. Patient reports mild headache, right leg pain, and overall weakness. Patient denies fevers, chills, sweats, changes in vision or hearing, dizziness, nausea, vomiting, chest pain, shortness of breath, abdominal pain, changes in bowels or bladder, or loss of sensation. Sodium 130 this morning, from 126 yesterday morning. Objective - Vital Signs Vital signs: Vital Signs Temp Pulse Resp BP Pulse Ox 11/24/16 07:34 98.8 F 81 18 128/56 97 11/24/16 05:14 64 18 96 11/24/16 03:52 99.2 F 73 18 109/91 96 11/24/16 00:40 77 17 96 11/23/16 23:54 99.0 F 80 17 137/57 96 11/23/16 20:14 97.6 F 75 16 126/46 98 11/23/16 20:03 75 16 100 11/23/16 15:34 97.9 F 60 16 129/46 100 11/23/16 14:27 64 119/45 11/23/16 11:47 66 11/23/16 11:15 98.3 F 70 18 122/51 97 Intake and Output 11/23/16 11/24/16 11/24/16 23:59 07:59 15:59 Intake Total 120 / 120 Balance 120 / 120 Intake: Oral 120 / 120 Other: Meal pudding snack # Voids 1 1 Weight 64.7 kg Blood Glucose* 131 149 Patient Weight 11/24/16 23:59 Weight 64.7 kg - General Appearance General appearance: Present: well-developed, well-nourished, appears started age EENT: Present: PERRL, mucous membranes moist Neck: Present: no JVD, no thyromegaly, no carotid bruit, supple Respiratory: Present: clear Cardiology: Present: no murmurs, no edema, regular rate, regular rhythm, normal S1, normal S2 Gastrointestinal: Present: normoactive bowel sounds, no tenderness, no guarding Integumentary: Present: no rash, warm and dry Neurologic: Present: no focal deficit, alert and oriented x3, CN 3-12 intact Musculoskeletal: Present: no deformities, no erythema, no cyanosis, no clubbing Psychiatric: Present: mood/affect appropriate, cooperative - Lab 11/23/16 05:20 11/24/16 05:47 Most recent lab results Calcium 8.3 mg/dL (8.6-10.8) L 11/24/16 05:47 Urine Creatinine 49 mg/dL 11/19/16 08:20 Urine Sodium 78.0 mEq/L 11/19/16 08:20 Consult Discharge Plan - Plan Instructions: Chest Pain (DC), Syndrome of Inappropriate Antidiuretic Hormone Secretion (DC), Fluid Restriction (DC) Referrals: Frederic Campa MD [Primary Care Provider] - Louise Escalante CNP [Advanced Practice Nurse] - 11/28/16 10:00 am
[2016-11-24 11:21] VITALS: BP 120/50
--- NOTE | 2016-11-24 12:44 | Discharge Summary ---
Date of Encounter: 11/24/16 Time of Encounter: 12:42 - Discharge Diagnosis (1) Hyponatremia Priority: Primary Status: Acute (2) Chest pain Priority: Secondary Status: Acute Qualifiers: Chest pain type: unspecified Qualified Code(s): R07.9 - Chest pain, unspecified (3) Diabetes Priority: Secondary Status: Chronic Qualifiers: Diabetes mellitus type: type 2 Diabetes mellitus complication status: without complication Diabetes mellitus real time trader insulin use: without real time trader use Qualified Code(s): E11.9 - Type 2 diabetes mellitus without complications (4) HTN (hypertension) Priority: Secondary Status: Chronic Qualifiers: Hypertension type: essential hypertension Qualified Code(s): I10 - Essential (primary) hypertension (5) Dementia Priority: Secondary Status: Chronic Qualifiers: Dementia type: unspecified type Dementia behavioral disturbance: without behavioral disturbance Qualified Code(s): F03.90 - Unspecified dementia without behavioral disturbance (6) CAD (coronary artery disease) Priority: Secondary Status: Chronic Qualifiers: Coronary Disease-Associated Artery/Lesion type: [place] artery [place] vs. transplanted heart: [place] heart Associated angina: without angina Qualified Code(s): I25.10 - Atherosclerotic heart disease of [place] coronary artery without angina pectoris (7) Carotid stenosis, left Priority: Secondary Status: Chronic - Discharge Medications Prescriptions: Sodium Chloride 1 gm PO BID #60 tablet Home Medications: Cholecalciferol (Vitamin D3) [Vitamin D3] 1,000 unit PO DAILY 09/03/15 [History] Ezetimibe [Zetia] 10 mg PO DAILY 09/03/15 [History] Losartan Potassium [Cozaar] 50 mg PO DAILY 09/03/15 [History] Raloxifene [Evista] 60 mg PO DAILY 09/03/15 [History] Pantoprazole Sodium [Protonix] 40 mg PO BID 03/17/16 [History] Cyanocobalamin (B-12) [Vitamin B12] 1,000 mcg IJ QMONTH 06/24/16 [History] Insulin Glargine,Hum.rec.anlog [[place] Solostar] 10 unit SQ DAILY 06/24/16 [ History] Allergy Injection 1 each SQ QMONTH 11/18/16 [History] Aspirin 81 mg PO DAILY 11/18/16 [History] Sodium Chloride 1 gm PO BID #60 tablet 11/24/16 [Rx] Allergies/Adverse Reactions: Allergies acetaminophen [From Vicodin] Allergy (Verified 11/18/16 14:14) Rash cephalexin Allergy (Verified 11/18/16 14:14) Rash codeine Allergy (Verified 11/18/16 14:14) Rash hydrocodone [From Vicodin] Allergy (Verified 11/18/16 14:14) Rash ibuprofen Allergy (Verified 11/23/16 04:54) Rash Penicillins [PCN] Allergy (Verified 11/18/16 14:14) Rash Sulfa (Sulfonamide Antibiotics) Allergy (Verified 11/18/16 14:14) Rash Date of admission: 11/22/16 08:42 Primary care physician: Frederic Campa MD Discharging clinician: Lei Evans Anticipated date of discharge: 11/24/16 - Patient Status Disposition: Transfer Inpatient Rehab Fac Condition: Fair Functional capacity at discharge: uses cane/walker Overall status at discharge: patient is back to baseline - Discharge Instructions Instructions: Sodium Chloride (By mouth), Chest Pain (DC), Syndrome of Inappropriate Antidiuretic Hormone Secretion (DC), Fluid Restriction (DC) Follow Up With: Frederic Campa MD [Primary Care Provider] - Johnathan Sepulveda DO [Partnered Physician] - 01/06/17 2:10 pm Louise Escalante INSET CUTTER [Advanced Practice Nurse] - (PATIENT IS GOING TO [facility] NO PCP APPOINTMENT NEEDED) Additional Instructions: Weekly BMP has been ordered. - Diet and Activity Activity: as per physical therapy Diet: advance to your usual diet Interval History: Ms. Galaviz is a 81 year old female with PMH significant for DM, HTN, mild cognitive impairment, history of CKD, bilateral carotid artery disease who developed acute onset of chest pain 4 days ago. she also presented with uncontrolled HTN She was initially admitted due to chest pain and subsequently found to have hyponatremia at 121 which worsened to 118. trop was neg and BP was controlled, however she was noted to have worsening confusion when na dropped to 118. workup revealed possibel SIADH which may be 2/2 tegretol and indapamide that she has been taking for a long time. both drugs were dc , she got one dose of vaptan which raised her sodium levels to 132. she became more somnolent the next day when her sodium corrected to 132, possible overcorrection however no focal neuro defecits. CT head was done that was neg and neuro consulted . as per neuro , supportive managemnet as no focal neuro defecit at this time renal has been following the patient while inhouse. at this point, we think that for her, na of 127-128 may be ideal, she was givena dose of ddAVP and her sodium levels came ack to 126 she improved clinically after that, we continuued fluid restriction adn started salt tabs she is almost at baseline now, [facility] condition today and will f.u with renal in 3-6 weeks. Hospital course: Ms. Galaviz is a 81 year old female Time spent discussing smoking cessation with patient: more than 10 minutes - Time Spent with Patient Total time spent providing and/or coordinating discharge services: Greater than 30 minutes - Constitutional Vitals: Temp Pulse Resp BP Pulse Ox 98.0 F 68 16 120/50 97 11/24/16 11:17 11/24/16 11:33 11/24/16 11:17 11/24/16 11:17 11/24/16 11:17 General appearance: Present: A&O X 3, no acute distress Exam: neck- supple chest- b/l clear, no added sounds CVS-s1 and s2, no mr//g abd-soft, non tender, bs are present ext- no edema neuro- alert and awake, moving all extremities
--- NOTE | 2016-11-24 12:46 | Physician Discharge Referral ---
ExtendedCare Referral Info Transfer To: F Provider in Charge: tanner pickett Institutional Level of Care: Intermediate - MR - Diagnosis (1) Hyponatremia Status: Acute (2) Chest pain Status: Acute (3) Diabetes Status: Chronic (4) HTN (hypertension) Status: Chronic (5) Dementia Status: Chronic (6) CAD (coronary artery disease) Status: Chronic (7) Carotid stenosis, left Status: Chronic - Transfer Medications Prescriptions: Sodium Chloride 1 gm PO BID #60 tablet Home Medications: Cholecalciferol (Vitamin D3) [Vitamin D3] 1,000 unit PO DAILY 09/03/15 [History] Ezetimibe [Zetia] 10 mg PO DAILY 09/03/15 [History] Losartan Potassium [Cozaar] 50 mg PO DAILY 09/03/15 [History] Raloxifene [Evista] 60 mg PO DAILY 09/03/15 [History] Pantoprazole Sodium [Protonix] 40 mg PO BID 03/17/16 [History] Cyanocobalamin (B-12) [Vitamin B12] 1,000 mcg IJ QMONTH 06/24/16 [History] Insulin Glargine,Hum.rec.anlog [[place] Solostar] 10 unit SQ DAILY 06/24/16 [ History] Allergy Injection 1 each SQ QMONTH 11/18/16 [History] Aspirin 81 mg PO DAILY 11/18/16 [History] Sodium Chloride 1 gm PO BID #60 tablet 11/24/16 [Rx] Allergies/Adverse Reactions: Allergies acetaminophen [From Vicodin] Allergy (Verified 11/18/16 14:14) Rash cephalexin Allergy (Verified 11/18/16 14:14) Rash codeine Allergy (Verified 11/18/16 14:14) Rash hydrocodone [From Vicodin] Allergy (Verified 11/18/16 14:14) Rash ibuprofen Allergy (Verified 11/23/16 04:54) Rash Penicillins [PCN] Allergy (Verified 11/18/16 14:14) Rash Sulfa (Sulfonamide Antibiotics) Allergy (Verified 11/18/16 14:14) Rash - Respiratory Orders Smoking Cessation: Smoking cessation has been advised. For more information, call the [employer] Tobacco Quit Line at 0-006-CLMP-NOW. - Lab Orders Lab Orders: Other (include drug levels w/frequency) (weekly bmp) - Advance Directives Code Status: DNR-Arrest/Don't Intubate - Mobility Orders Chair, Ambulate - Rehabiliation Orders Rehab Potential: Poor Rehab Orders: Evaluation for Physical Therapy, Evaluation for Occupational Therapy - Diet Orders Regular CERTIFICATION: I certify that the transfer of the above named patient to an Extended Care Facility is necessary for the continuing treatment of the diagnosis listed. The above information is true and accurate reflection of patient's current condition. Confidential - Redisclosure prohibited without a patient's written consent.
--- NOTE | 2016-11-24 16:54 | Electrocardiograph Report ---
[place] [facility] Test Date: 2016-11-18 Pat Name: Ramona Galaviz Department: 102 Room: 2N09 Gender: F Stoper: : 1935 Requested By: Mick Pavon Order Number: [id number] Reading MD: Braxton Barajas MD Measurements Intervals [place] Rate: 67 P: 54 LA: 178 QRS: 19 QRSD: 94 T: 27 QT: 423 QTc: 438 Interpretive Statements SINUS RHYTHM Electronically Signed On 11-24-2016 16:52:40 EDT by Braxton Barajas MD
== END 2016-11-24 16:25 | DRG 641 ==
LOC: EMEROO 12:03 → 3BNU 12:03 → 2NNU 11-19 01:43
PROVIDERS: ADMIT Internal Medicine; ATTEND Registered Nurse